=== PATIENT | female | born 1980 | race African-American/Black ===

== ENCOUNTER 2016-10-30 06:58 | Emergency (ER) | payer OTHER ==
[~2016-10-30] VITALS: Ht 167.6 cm; Wt 95.3 kg
[~2016-10-30 06:58] MED LIST: HYDR-971 PO; IBUP-1007 PO; SULF1TAB24 PO; TRAM-48 PO
[2016-10-30 07:10] VITALS: BP 146/80
[2016-10-30] MEDS ORDERED: CETIRIZINE HCL 10 MG TABLET. PO STA (07:27)
[2016-10-30] MEDS ORDERED: hydrOXYzine PAMOATE 25 MG CAPSULE PO STA (07:27)
[2016-10-30] MEDS ORDERED: predniSONE 20 MG TABLET PO ONE (07:30)
--- NOTE | 2016-10-30 07:32 | PHYS DOC ---
Past Medical History Past Medical History: No Pertinent History Past Surgical History: Other Additional Past Surgical Histo: fibroid removed l breast Alcohol Use: None Drug Use: None Adult General Chief Complaint Chief Complaint: INSECT BITE HPI HPI Patient is a 35 year old female with no significant medical history who presents with insect bites on her extremities that began 3 weeks ago. Patient denies any fever. Patient denies any knowledge of what could have caused the bites. Review of Systems Review of Systems Constitutional: Denies fever or chills [] Eyes: Denies change in visual acuity, redness, or eye pain [] HENT: Denies nasal congestion or sore throat [] Musculoskeletal: Denies back pain or joint pain [] Integument: insect bites on her extremities Neurologic: Denies headache, focal weakness or sensory changes [] Endocrine: Denies polyuria or polydipsia [] Current Medications Current Medications Current Medications Medications (Trade) Dose Ordered Sig/Chaparrita Start Time Stop Time Status Last Admin Dose Admin Cetirizine HCl (ZyrTEC) 10 mg 1X STAT 10/30/16 07:27 10/30/16 07:30 DC Hydroxyzine Pamoate (Vistaril) 50 mg 1X STAT 10/30/16 07:27 10/30/16 07:30 DC Prednisone (Prednisone) 60 mg 1X ONCE 10/30/16 07:30 10/30/16 07:31 DC Allergies Allergies Allergies Coded Allergies Type Severity Reaction Last Updated Verified Metronidazole HCl Allergy Intermediate RASH, SKIN PEELING 04/19/13 Yes Nitrofurantoin Allergy Intermediate RASH, SKIN PEELING 04/19/13 Yes Nitrofurantoin Macrocrystal Allergy Intermediate RASH, SKIN PEELING 04/19/13 Yes doxycycline Allergy Intermediate SKIN PEELING, RASH 04/19/13 Yes metronidazole Allergy Intermediate RASH, SKIN PEELING 04/19/13 Yes Physical Exam Physical Exam Constitutional: Well developed, well nourished, no acute distress, non-toxic appearance. [] HENT: Normocephalic, atraumatic, bilateral external ears normal, oropharynx moist, no oral exudates, nose normal. [] Eyes: PERRLA, EOMI, conjunctiva normal, no discharge. [] Skin: Bilateral upper and lower extremities with mild amount of erythematous macular rash consistent with insect bites. Back: No tenderness, no CVA tenderness. [] Extremities: No tenderness, no cyanosis, no clubbing, ROM intact, no edema. [] Neurologic: Alert and oriented X 3, normal motor function, normal sensory function, no focal deficits noted. [] Psychologic: Affect normal, judgement normal, mood normal. [] Current Patient Data Vital Signs Vital Signs Date Time Temp Pulse Resp B/P (MAP) Pulse Ox O2 Delivery O2 Flow Rate FiO2 10/30/16 07:10 98.5 93 16 98 Room Air 98.5 EKG EKG [] Radiology/Procedures Radiology/Procedures [] Course & Med Decision Making Course & Med Decision Making Pertinent Labs and Imaging studies reviewed. (See chart for details) Patient is in the ED with insect bites from unknown source for three weeks. Discharged with Atarax, triamcinolone cream, prednisone, and instructed to follow-up with the director index in the next 2 weeks if symptoms don't improve. Recommended good hygiene at home. Dragon Disclaimer Dragon Disclaimer This electronic medical record was generated, in whole or in part, using a voice recognition dictation system. Departure Departure Impression: Primary Impression: Insect bite Disposition: HOME, SELF-CARE Condition: STABLE Referrals: NO PCP (PCP) GUSTABO DIXON MD follow up in the next one to two weeks Patient Instructions: Insect Bite, [id number] Additional Instructions: You were seen with insect bites.Use the prescribed medicines as ordered. Follow- up with the provided director index in the next 1-2 weeks if symptoms continue. Scripts Cetirizine Hcl (ZYRTEC) 10 Mg Tablet 1 TAB PO DAILY, #30 TAB 2 Refills Prov: DORON JOHNSON APRN 10/30/16 Hydroxyzine Pamoate (HYDROXYZINE PAMOATE) 50 Mg Capsule 1 CAP PO TID Y for ITCHING, #90 CAP 1 Refill Prov: MUTUNGADORON MEN'S SWIM COACH 10/30/16 Prednisone (PREDNISONE) 50 Mg Tablet 1 TAB PO DAILY, #4 TAB Prov: MUTUNGADORON MEN'S SWIM COACH 10/30/16 Triamcinolone Acetonide (TRIAMCINOLONE ACETONIDE 0.1% OINT) 15 Gm Oint...g. 1 JOE TP BID for WOUND CARE, #1 TUBE 1 Refill Prov: DORON JOHNSON APRN 10/30/16 Problem Qualifiers Primary Impression: Insect bite Encounter type: initial encounter Qualified Codes: W57.XXXA - Bitten or stung by nonvenomous insect and other nonvenomous arthropods, initial encounter DORON JOHNSON APRN Oct 30, 2016 07:32
[2016-10-30] MEDS ORDERED: HYDR50CA2 PO (07:39)
[2016-10-30] MEDS ORDERED: CETI10TA22 PO (07:39)
[2016-10-30] MEDS ORDERED: TRIA15OI TP (07:39)
[2016-10-30] MEDS ORDERED: PRED50TA PO (07:39)
== END 2016-10-30 07:52 | disposition home or self-care (01) ==
LOC: ER 06:58
DX: S40.862A Insect bite (nonvenomous) of left upper arm, initial encounter (principal); S40.861A Insect bite (nonvenomous) of right upper arm, initial encounter; S80.862A Insect bite (nonvenomous), left lower leg, initial encounter; S80.861A Insect bite (nonvenomous), right lower leg, initial encounter; W57.XXXA Bitten or stung by nonvenomous insect and other nonvenomous arthropods, initial encounter; Y93.89 Activity, other specified; Y92.89 Other specified places as the place of occurrence of the external cause; Y99.8 Other external cause status
CPT/HCPCS: 99284; J7512; Q0177

== ENCOUNTER 2017-02-08 11:58 | Emergency (ER) | payer BC, OTHER ==
[~2017-02-08] VITALS: Ht 170.2 cm; Wt 95.3 kg
[~2017-02-08 11:58] MED LIST changes: +CETI10TA22 PO; +HYDR50CA2 PO; +PRED50TA PO; +TRIA15OI TP
[2017-02-08 12:28] VITALS: BP 127/69
[2017-02-08] MEDS ORDERED: HYDROcodone/APAP 5/325MG 1 TAB TABLET PO ONE (12:30)
[2017-02-08] MEDS ORDERED: CYCLOBENZAPRINE 10 MG TABLET. PO ONE (12:30)
[2017-02-08] MEDS ORDERED: NAPROXEN 500 MG TABLET PO ONE (12:30)
--- NOTE | 2017-02-08 13:02 | RAD ---
Right lower extremity venous ultrasound, 02/08/2017 : History: Right leg pain Duplex evaluation including grayscale, color flow and spectral Doppler analysis was performed. The femoral and popliteal veins show no filling defects to suggest DVT. The visualized deep veins in the right calf are unremarkable. IMPRESSION: There is no sonographic evidence of deep vein thrombosis in the right lower extremity
[2017-02-08] MEDS ORDERED: TRAM-48 PO (13:56)
[2017-02-08] MEDS ORDERED: METH-37 PO (13:56)
--- NOTE | 2017-02-08 13:56 | PHYS DOC ---
Past Medical History Past Medical History: No Pertinent History Past Surgical History: Other Additional Past Surgical Histo: fibroid removed l breast Alcohol Use: None Drug Use: None Adult General Chief Complaint Chief Complaint: LOWEREXTREMITY INJURY HPI HPI Patient is a 36 year old female with no significant medical history who presents today complaining of right lower extremity spasms, mild to moderate pain and cramping that began 3 days ago. Patient denies any injury. Denies any back pain. Denies any chest pain or shortness of breath. She states most of the pain is on the calf and worse with ambulation. Patient denies any recent hospitalization denies any recent long car rides or air travel. Denies any use of control or any hormones. Denies any chest pain or shortness of breath. Review of Systems Review of Systems Constitutional: Denies fever or chills [] Eyes: Denies change in visual acuity, redness, or eye pain [] HENT: Denies nasal congestion or sore throat [] Respiratory: Denies cough or shortness of breath [] Cardiovascular: No additional information not addressed in HPI [] GI: Denies abdominal pain, nausea, vomiting, bloody stools or diarrhea [] : Denies dysuria or hematuria [] Musculoskeletal: right calf pain, spasm and cramping Integument: Denies rash or skin lesions [] Neurologic: Denies headache, focal weakness or sensory changes [] Current Medications Current Medications Current Medications Medications (Trade) Dose Ordered Sig/Chaparrita Start Time Stop Time Status Last Admin Dose Admin Acetaminophen/ Hydrocodone Bitart (Lortab 5/325) 1 tab 1X ONCE 02/08/17 12:30 02/08/17 12:32 DC 02/08/17 12:46 1 TAB Cyclobenzaprine HCl (Flexeril) 10 mg 1X ONCE 02/08/17 12:30 02/08/17 12:32 DC 02/08/17 12:46 10 MG Naproxen (Naprosyn) 500 mg 1X ONCE 02/08/17 12:30 02/08/17 12:32 DC 02/08/17 12:47 500 MG Allergies Allergies Allergies Coded Allergies Type Severity Reaction Last Updated Verified Metronidazole HCl Allergy Intermediate RASH, SKIN PEELING 04/19/13 Yes Nitrofurantoin Macrocrystal Allergy Intermediate RASH, SKIN PEELING 04/19/13 Yes doxycycline Allergy Intermediate SKIN PEELING, RASH 04/19/13 Yes metronidazole Allergy Intermediate RASH, SKIN PEELING 04/19/13 Yes nitrofurantoin Allergy Intermediate RASH, SKIN PEELING 04/19/13 Yes Physical Exam Physical Exam Constitutional: Well developed, well nourished, no acute distress, non-toxic appearance. [] HENT: Normocephalic, atraumatic, bilateral external ears normal, oropharynx moist, no oral exudates, nose normal. [] Eyes: PERRLA, EOMI, conjunctiva normal, no discharge. [] Neck: Normal range of motion, no tenderness, supple, no stridor. [] Cardiovascular:Heart rate regular rhythm, no murmur [] Lungs & Thorax: Bilateral breath sounds clear to auscultation [] Abdomen: Bowel sounds normal, soft, no tenderness, no masses, no pulsatile masses. [] Skin: Warm, dry, no erythema, no rash. [] Back: No tenderness, no CVA tenderness. [] Extremities: Right calf with no obvious swelling or erythema. Both calfs are same size. Negative Homans sign bilaterally. +2 bilateral pedal pulses. Cap refill less than 2 seconds the right lower extremity. Neurologic: Alert and oriented X 3, normal motor function, normal sensory function, no focal deficits noted. [] Psychologic: Affect normal, judgement normal, mood normal. [] Current Patient Data Vital Signs Vital Signs Date Time Temp Pulse Resp B/P (MAP) Pulse Ox O2 Delivery O2 Flow Rate FiO2 02/08/17 12:28 98.6 106 16 98 Room Air 98.6 Lab Values Laboratory Tests Test 02/08/17 13:30 POC Hemoglobin 14.6 g/dL (12-15) POC Hematocrit 43 % (36-40) H POC Sodium 139 mmol/L (135-145) POC Potassium 4.0 mmol/L (3.5-5.0) POC Chloride 102 mmol/L (98-110) POC Total CO2 24 mmol/L (23-32) Anion Gap 17 mmol/L (6-14) H POC Blood Urea Nitrogen 16 mg/dL (8-26) POC Creatinine 1.0 mg/dL (0.5-1.4) Glucose Level 84 mg/dL (70-99) POC Ionized Calcium (Leonard) 1.12 mmol/L (1.13-1.32) L Laboratory Tests 02/08/17 13:30 EKG EKG [] Radiology/Procedures Radiology/Procedures [] Course & Med Decision Making Course & Med Decision Making Pertinent Labs and Imaging studies reviewed. (See chart for details) Patient is in the ED with complaints of right lower extremity pain, cramping and spasms that began 3 days ago. No known injury. Venous Doppler of the right lower extremity was negative for any acute findings, chem 8 with no acute findings. Patient was discharged with muscles relaxer and pain medicine. Recommended elevating the affected extremity. Recommended following up with the PCP in the course of this week. Coumadin coming back to the ED if symptoms worsen. Dragon Disclaimer Dragon Disclaimer This electronic medical record was generated, in whole or in part, using a voice recognition dictation system. Departure Departure Impression: Primary Impression: Acute pain of right lower extremity Disposition: 01 HOME, SELF-CARE Condition: STABLE Referrals: NO PCP (PCP) follow up with your doctor in one week if pain continues Patient Instructions: Musculoskeletal Pain Additional Instructions: You were seen for right lower extremity pain, cramping and spasms. Ice and elevate the extremity as tolerated. Take the prescribed medicines as needed for pain. Do not drive or operate machinery on the medications. Follow-up with your own doctor in one week. Scripts Methocarbamol (ROBAXIN) 500 Mg Tablet 1 TAB PO TID, #30 TAB Prov: DORON JOHNSON APRN 02/08/17 Tramadol Hcl (ULTRAM) 50 Mg Tablet 1 TAB PO Q6HRS, #30 TAB Prov: DORON JOHNSON APRN 02/08/17 DORON JOHNSON APRN Feb 08, 2017 13:56
== END 2017-02-08 14:02 | disposition home or self-care (01) ==
LOC: ER 11:58
DX: M79.661 Pain in right lower leg (principal); Z88.1 Allergy status to other antibiotic agents; Z88.8 Allergy status to other drugs, medicaments and biological substances
CPT/HCPCS: 80047; 93971; 99284

== ENCOUNTER 2017-06-27 07:21 | Emergency (ER) | payer OTHER, BC ==
[2017-06-27] MEDS: DIPHTH,PERTUSS(ACELL),TET TOX 0.5 ML DISP.SYRIN. VAX IM ×2 (07:57)
== END 2017-06-27 08:03 | disposition home or self-care (01) ==
LOC: ER 07:21
DX: L02.416 Cutaneous abscess of left lower limb (principal); Z88.1 Allergy status to other antibiotic agents; Z88.8 Allergy status to other drugs, medicaments and biological substances
CPT/HCPCS: 90471; 90715; 99283-25

== ENCOUNTER 2017-09-27 18:50 | Observation (INO) | payer OTHER ==
[2017-09-27] MEDS: ONDANSETRON PF 4 MG/2 ML VIAL. IV (19:09)
[2017-09-27] MEDS: fentaNYL PF VIAL 100 MCG/2 ML VIAL IV ×3 (19:09→22:26)
[2017-09-27] MEDS: IV NORMAL SALINE 1000ML BAG 1,000 ML IV ×2 (19:10→20:14)
[2017-09-27 19:17] LABS: BASO # 0.1 x10^3/uL (0.0-0.2); BASO % 1 % (0-3); EOS # 0.3 x10^3/uL (0.0-0.7); EOS % 2 % (0-3); HEMATOCRIT 35.5 % (36.0-47.0); HEMOGLOBIN 12.3 g/dL (12.0-15.5); LYMPH % 22 % (24-48); MEAN CORPUSCULAR HEMOGLOBIN 30 pg (25-35); MEAN CORPUSCULAR HGB CONC 35 g/dL (31-37); MEAN CORPUSCULAR VOLUME 88 fL (79-100); MONO # 0.9 x10^3/uL (0.0-1.1); MONO % 5 % (0-9); NEUT # 12.9 x10^3uL (1.8-7.7); NEUT % 71 % (31-73); PLATELET COUNT 298 x10^3/uL (140-400); RED BLOOD COUNT 4.04 x10^6/uL (3.50-5.40); RED CELL DISTRIBUTION WIDTH 14.1 % (11.5-14.5); WHITE BLOOD COUNT 18.2 x10^3/uL (4.0-11.0)
[2017-09-27] MEDS ORDERED: fentaNYL PF VIAL 100 MCG/2 ML VIAL IV (19:20)
[2017-09-27 19:28] LABS: ADD MAN DIFF? YES
[2017-09-27 19:33] LABS: NEG OBC SER NEG; POS OBC SER POS; PREG TEST PT QUAL POSITIVE (NEG)
[2017-09-27] MEDS: MORPHINE SULFATE 4 MG/ML DISP.SYRIN. IV ×3 (19:36→20:24)
[2017-09-27 19:55] LABS: % EOS 1 % (0-5); % LYMPHS 20 % (24-48); % MONOS 7 % (0-10); % SEGS 72 % (35-66); PLT ESTIMATE ADEQUATE (ADEQUATE)
[2017-09-27] MEDS ORDERED: ONDANSETRON PF 4 MG/2 ML VIAL. IV ×2 (20:15→21:00)
[2017-09-27] MEDS ORDERED: ACETAMINOPHEN 325 MG TABLET. PO (20:15)
[2017-09-27] MEDS ORDERED: MORPHINE SULFATE 4 MG/ML DISP.SYRIN. IV ×2 (20:15→21:00)
[2017-09-27] MEDS ORDERED: fentaNYL PF VIAL 100 MCG/2 ML VIAL (20:39)
[2017-09-27] MEDS ORDERED: SEVOFLURANE 16 TO 30 MINUTES. IH (20:39)
[2017-09-27] MEDS ORDERED: PROPOFOL 20 ML IV (20:40)
[2017-09-27] MEDS ORDERED: DEXAMETHASONE SOD PHOS 20 MG/5 ML VIAL. (20:40)
[2017-09-27] MEDS ORDERED: ONDANSETRON PF 4 MG/2 ML VIAL. (20:40)
[2017-09-27] MEDS ORDERED: FAMOTIDINE 20 MG/2 ML VIAL (20:44)
[2017-09-27] MEDS ORDERED: METOCLOPRAMIDE HCL 10 MG/2 ML VIAL. IV (21:00)
[2017-09-27] MEDS ORDERED: diphenhydrAMINE HCL 25 MG CAPSULE PO (21:00)
[2017-09-27] MEDS ORDERED: MAG HYDROX/ALUMINUM HYD/SIMETH 30 ML ORAL.SUSP PO (21:00)
[2017-09-27] MEDS ORDERED: DEXTROSE 50% 25 GM / 50ML DISP.SYRIN. IV (21:00)
[2017-09-27] MEDS ORDERED: DOXYCYCLINE HYCLATE 100 MG TABLET PO (21:00)
[2017-09-27] MEDS ORDERED: PHENYLEPHRINE in 0.9% NACL PF 1 MG/10 ML SYRINGE. IV (21:00)
[2017-09-27] MEDS ORDERED: oxyCODONE/APAP 5/325 1 TAB TABLET PO (21:00)
[2017-09-27] MEDS ORDERED: 0.9 % SODIUM CHLORIDE 10 ML DISP.SYRIN. IV (21:00)
[2017-09-27] MEDS ORDERED: OXYTOCIN 10 UNIT/ML VIAL. (21:03)
[2017-09-27] MEDS: IV RINGERS,LACTATED 1000ML 1,000 ML IV (22:25)
[2017-09-27] MEDS: METHYLERGONOVINE MALEATE 0.2 MG TABLET PO (22:55)
[2017-09-27] MEDS: oxyCODONE/APAP 5/325 1 TAB TABLET PO (23:38)
[2017-09-28] MEDS: oxyCODONE IR 5 MG TABLET PO (02:24)
[2017-09-28] MEDS: oxyCODONE/APAP 5/325 1 TAB TABLET PO (05:51)
[2017-09-28] MEDS ORDERED: CLINDAMYCIN HCL 150 MG CAPSULE. PO (09:00)
[2017-09-28] MEDS ORDERED: LACTOBACILLUS RHAMNOSUS GG 1 CAPSULE. PO (09:00)
[2017-09-28 09:19] LABS: ADD MAN DIFF? NO
[2017-09-28 09:24] LABS: BASO # 0.1 x10^3/uL (0.0-0.2); BASO % 0 % (0-3); EOS % 0 % (0-3); HEMATOCRIT 21.7 % (36.0-47.0); HEMOGLOBIN 7.1 g/dL (12.0-15.5); LYMPH # 1.5 x10^3/uL (1.0-4.8); LYMPH % 7 % (24-48); MEAN CORPUSCULAR HEMOGLOBIN 29 pg (25-35); MEAN CORPUSCULAR HGB CONC 33 g/dL (31-37); MEAN CORPUSCULAR VOLUME 89 fL (79-100); MONO # 0.5 x10^3/uL (0.0-1.1); MONO % 3 % (0-9); NEUT # 19.6 x10^3uL (1.8-7.7); NEUT % 90 % (31-73); PLATELET COUNT 235 x10^3/uL (140-400); RED BLOOD COUNT 2.43 x10^6/uL (3.50-5.40); WHITE BLOOD COUNT 21.6 x10^3/uL (4.0-11.0)
[2017-09-28 09:36] LABS: ANION GAP 9 (6-14); BLOOD UREA NITROGEN 11 mg/dL (7-20); CALCIUM 8.3 mg/dL (8.5-10.1); CARBON DIOXIDE 24 mmol/L (21-32); CHLORIDE 106 mmol/L (98-107); CREATININE 0.9 mg/dL (0.6-1.0); GFR 86.7; GLUCOSE 133 mg/dL (70-99); POTASSIUM 4.3 mmol/L (3.5-5.1); SODIUM 139 mmol/L (136-145)
== END 2017-09-28 14:30 | disposition home or self-care (01) ==
LOC: ER 18:50 → 3 NORTH 20:10
PROVIDERS: Specialist
DX: O03.4 Incomplete spontaneous abortion without complication (principal); Z3A.10 10 weeks gestation of pregnancy
CPT/HCPCS: 36415; 76856; 80048; 84702; 84703; 85007; 85025; 86850; 86900; 86901; 88305; 96361; 96374; 96375; 96376; 99285-25; C1769; G0378; G0379; J1100; J2270; J2370; J2405; J2590; J2704; J3010; J7030; J7120; S0028

== ENCOUNTER 2018-10-28 10:16 | Emergency (ER) | payer OTHER ==
[~2018-10-28] VITALS: Ht 170.2 cm; Wt 68.0 kg
[~2018-10-28 10:16] MED LIST changes: +FERR325T14 PO; +HYDR-3164 PO; -HYDR-971 PO; +METH-37 PO; +OXYC1TAB7 PO
[2018-10-28 10:53] VITALS: BP 132/65
[2018-10-28] MEDS ORDERED: NAPR-683 PO (11:01)
--- NOTE | 2018-10-28 11:02 | PHYS DOC ---
Past Medical History Past Medical History: Asthma Past Surgical History: Other Additional Past Surgical Histo: lump removed from left breast Alcohol Use: None Drug Use: None Adult General Chief Complaint Chief Complaint: KNEE INJURY [facility] HPI Patient is a 37 year old female who presents with complaining of right knee pain. Patient complaining of nontraumatic right knee pain for the last 5 days after handling some grocery bags. Patient complaining of constant pain in her neck that getting worse with walking and bearing weight. Patient denies focal neuro deficit, fever and chills, . Patient states she is therefore return to work today. Review of Systems Review of Systems Constitutional: Denies fever or chills [] Eyes: Denies change in visual acuity, redness, or eye pain [] HENT: Denies nasal congestion or sore throat [] Respiratory: Denies cough or shortness of breath [] Cardiovascular: No additional information not addressed in HPI [] GI: Denies abdominal pain, nausea, vomiting, bloody stools or diarrhea [] : Denies dysuria or hematuria [] Musculoskeletal: Denies back pain, reports joint pain [] Integument: Denies rash or skin lesions [] Neurologic: Denies headache, focal weakness or sensory changes [] Endocrine: Denies polyuria or polydipsia [] All other systems were reviewed and found to be within normal limits, except as documented in this note. Allergies Allergies Allergies Coded Allergies Type Severity Reaction Last Updated Verified Metronidazole HCl Allergy Intermediate RASH, SKIN PEELING 04/19/13 Yes Nitrofurantoin Macrocrystal Allergy Intermediate RASH, SKIN PEELING 04/19/13 Yes doxycycline Allergy Intermediate SKIN PEELING, RASH 04/19/13 Yes metronidazole Allergy Intermediate RASH, SKIN PEELING 04/19/13 Yes nitrofurantoin Allergy Intermediate RASH, SKIN PEELING 04/19/13 Yes Physical Exam Physical Exam Constitutional: Well developed, well nourished, no acute distress, non-toxic appearance. [] HENT: Normocephalic, atraumatic Eyes: PERRLA, EOMI, conjunctiva normal, no discharge. [] Neck: Normal range of motion, no tenderness, supple, no stridor. [] Cardiovascular:Heart rate regular rhythm, no murmur [] Lungs & Thorax: Bilateral breath sounds clear to auscultation [] Extremities: Right knee without deformity or edema or crepitation, no tenderness, no cyanosis, no clubbing, ROM intact, no edema. [] Neurologic: Alert and oriented X 3, normal motor function, normal sensory function, no focal deficits noted. [] Psychologic: Affect normal, judgement normal, mood normal. [] EKG EKG [] Radiology/Procedures Radiology/Procedures [] Course & Med Decision Making Course & Med Decision Making discharge: I've spoken with the patient and/or caregivers. I've explained the patient's condition, diagnosis and treatment plan based on information available to me at this time. I've answered the patient's and/or caregivers questions and addressed any concerns. The patient and/or caregivers have a good understanding the yevgeniy calle's diagnosis, condition and treatment plan as can be expected at this point. Vital signs have been stabilized. The patient's condition is stable for discharge from the emergency department. The patient will pursue further outpatient evaluation with her primary care provider or other designated consulting physician as outlined in the discharge instructions. Patient and/or caregivers are agreeable to this plan of care and follow-up instructions have been explained in detail. The patient and/or caregivers have received these instructions in written format and expressed understanding of these discharge instructions. The patient and her caregivers are aware that if any significant change in condition or worsening of symptoms should prompt him to immediately return to this of the closest emergency department. If an emergent department is not readily available I would encourage him to call 911. Mg Disclaimer Dragon Disclaimer This electronic medical record was generated, in whole or in part, using a voice recognition dictation system. Departure Departure Impression: Primary Impression: Right knee pain Disposition: HOME, SELF-CARE (at 11 00) Condition: STABLE Referrals: NO PCP (PCP) Patient Instructions: Arthritis, Degenerative-Brief Additional Instructions: Apply ice on right Follow-up with your primary care physician in 3-5 days Return to ER if not getting better Scripts Naproxen (NAPROSYN) 500 Mg Tablet 1 TAB PO BID for pain, #20 TAB Prov: NASREEN VILLA MD 10/28/18 Problem Qualifiers Primary Impression: Right knee pain Chronicity: unspecified Qualified Codes: M25.561 - Pain in right knee NASREEN VILLA MD Oct 28, 2018 11:02
== END 2018-10-28 11:11 | disposition home or self-care (01) ==
LOC: ER 10:16
DX: M25.561 Pain in right knee (principal); M54.2 Cervicalgia; J45.909 Unspecified asthma, uncomplicated; Z88.1 Allergy status to other antibiotic agents; Z88.8 Allergy status to other drugs, medicaments and biological substances
CPT/HCPCS: 99283

== ENCOUNTER 2018-12-31 10:41 | Emergency (ER) | payer OTHER ==
[~2018-12-31] VITALS: Ht 167.6 cm; Wt 93.0 kg
[~2018-12-31 10:41] MED LIST changes: +NAPR-683 PO
[2018-12-31 11:50] VITALS: BP 134/71
[2018-12-31] MEDS ORDERED: CEPH-264 PO (11:59)
--- NOTE | 2018-12-31 11:59 | PHYS DOC ---
Past Medical History Past Medical History: No Pertinent History, Asthma Past Surgical History: Other Additional Past Surgical Histo: lump removed from left breast Alcohol Use: None Drug Use: None Adult General Chief Complaint Chief Complaint: INSECT BITE HPI HPI Patient is a 38 year old female presents to the ER with an insect bite to the right side. The areas been hurting her since last night, denies fevers. Rates mild pain is 3 out of 10 in severity. Has not taken any medicine prior to arrival. Review of Systems Review of Systems Constitutional: Denies fever or chills [] Eyes: Denies change in visual acuity, redness, or eye pain [] HENT: Denies nasal congestion or sore throat [] Respiratory: Denies cough or shortness of breath [] Cardiovascular: No additional information not addressed in HPI [] GI: Denies abdominal pain, nausea, vomiting, bloody stools or diarrhea [] : Denies dysuria or hematuria [] Musculoskeletal: Denies back pain or joint pain [] Integument: Reports insect bite to R side Neurologic: Denies headache, focal weakness or sensory changes [] Endocrine: Denies polyuria or polydipsia [] Complete systems were reviewed and found to be within normal limits, except as documented in this note. Allergies Allergies Allergies Coded Allergies Type Severity Reaction Last Updated Verified Metronidazole HCl Allergy Intermediate RASH, SKIN PEELING 04/19/13 Yes Nitrofurantoin Macrocrystal Allergy Intermediate RASH, SKIN PEELING 04/19/13 Yes doxycycline Allergy Intermediate SKIN PEELING, RASH 04/19/13 Yes metronidazole Allergy Intermediate RASH, SKIN PEELING 04/19/13 Yes nitrofurantoin Allergy Intermediate RASH, SKIN PEELING 04/19/13 Yes Physical Exam Physical Exam Constitutional: Well developed, well nourished, no acute distress, non-toxic appearance. [] HENT: Normocephalic, atraumatic, bilateral external ears normal, oropharynx moist, no oral exudates, nose normal. [] Eyes: PERRLA, EOMI, conjunctiva normal, no discharge. [] Neck: Normal range of motion, no tenderness, supple, no stridor. [] Cardiovascular:Heart rate regular rhythm, no murmur [] Lungs & Thorax: Bilateral breath sounds clear to auscultation [] Abdomen: Bowel sounds normal, soft, no tenderness, no masses, no pulsatile masses. [] Skin: Area of erythema with brown sac in middle. ] Back: No tenderness, no CVA tenderness. [] Extremities: No tenderness, no cyanosis, no clubbing, ROM intact, no edema. [] Neurologic: Alert and oriented X 3, normal motor function, normal sensory function, no focal deficits noted. [] Psychologic: Affect normal, judgement normal, mood normal. [] EKG EKG [] Radiology/Procedures Radiology/Procedures [] Course & Med Decision Making Course & Med Decision Making Pertinent Labs and Imaging studies reviewed. (See chart for details) Does not appear to be a candidate for draining. Will treat with Keflex. Dragon Disclaimer Dragon Disclaimer This electronic medical record was generated, in whole or in part, using a voice recognition dictation system. Departure Departure Impression: Primary Impression: Cellulitis Disposition: HOME, SELF-CARE Condition: STABLE Referrals: NO PCP (PCP) Patient Instructions: Cellulitis Additional Instructions: Thank you for visiting [facility]. We appreciate you trusting us with your care. If any additional problems come up don't hesitate to return to visit us. Please follow up with your primary care provider so they can plan additional care if needed and know about the problem that you had. If symptoms worsen come back to the Emergency Department. Any concerning symptoms that start such as chest pain, shortness of air, weakness or numbness on one side of the body, running high fevers or any other concerning symptoms return to the ER. You have been prescribed an antibiotic today to help fight your infection. Please take all of the antibiotic as directed. If after 48 hours the infection is not improving, please return for more care. If the infection worsens, return to ER for additional care. Scripts Cephalexin (KEFLEX) 500 Mg Capsule 500 MG PO QID for 5 Days, #20 CAP Prov: CARMELITA VELAZQUEZ APRN 12/31/18 Problem Qualifiers Primary Impression: Cellulitis Site of cellulitis: trunk Site of cellulitis of trunk: back Qualified Codes: L03.312 - Cellulitis of back [any part except buttock] CARMELITA VELAZQUEZ APRN Dec 31, 2018 11:59
== END 2018-12-31 12:02 | disposition home or self-care (01) ==
LOC: ER 10:41
DX: L03.312 Cellulitis of back [any part except buttock and flank] (principal); J45.909 Unspecified asthma, uncomplicated; Z88.1 Allergy status to other antibiotic agents; Z88.8 Allergy status to other drugs, medicaments and biological substances; W57.XXXA Bitten or stung by nonvenomous insect and other nonvenomous arthropods, initial encounter; Y93.89 Activity, other specified; Y92.89 Other specified places as the place of occurrence of the external cause; Y99.8 Other external cause status
CPT/HCPCS: 99283

== ENCOUNTER 2021-01-11 12:10 | Inpatient (IN) | payer OTHER ==
[~2021-01-11] VITALS: Ht 175.3 cm; Wt 84.5 kg
[2021-01-11] VITALS (8 sets, daily range): BP systolic 105–148; BP diastolic 68–85
[~2021-01-11 12:10] MED LIST changes: +CEPH-264 PO; -CETI10TA22 PO; +CETI10TA74 PO
[2021-01-11] MEDS ORDERED: NALOXONE IV ONE (12:45)
[2021-01-11] MEDS ORDERED: NOREPINEPHRINE VIAL 8 MG in IV DEXTROSE 5% 250 ML IV ONE (12:45)
[2021-01-11] MEDS ORDERED: NS IV ONE (12:45)
[2021-01-11 13:22] LABS: U PREG PATIENT NEGATIVE (NEG)
--- NOTE | 2021-01-11 13:33 | RAD ---
EXAMINATION: XR CHEST 2V CLINICAL HISTORY: POST INTUBATION AND OG TUBE PLACEMENT EXAM DATE/TIME: 01/11/2021 1:03 PM COMPARISON: None FINDINGS: Lines, Tubes, and Devices: Endotracheal tube terminating 3.3 cm above the rohith. Enteric tube in pro ximal side port within the stomach. Cardiomediastinal Silhouette: Normal heart size. Lungs and Pleura: Patchy opacities predominantly in the central right lung and to lesser extent left upper lung zone. No evidence of pleural effusion or pneumothorax. Bones and Soft Tissues: No acute osseous abnormality. IMPRESSION: Patchy airspace disease/edema in the central right lung and mild patchy airspace disease in the left upper lung zone. Endotracheal and enteric tubes in satisfactory positions. Electronically signed by: Robby Suggs DO (01/11/2021 1:31 PM) JOSE
[2021-01-11 13:39] LABS: BASO % 0 % (0-3); EOS % 0 % (0-3); HEMATOCRIT 43.6 % (36.0-47.0); HEMOGLOBIN 13.7 g/dL (12.0-15.5); LYMPH % 7 % (24-48); MEAN CORPUSCULAR HEMOGLOBIN 29 pg (25-35); MEAN CORPUSCULAR HGB CONC 31 g/dL (31-37); MEAN CORPUSCULAR VOLUME 92 fL (79-100); MONO # 1.5 x10^3/uL (0.0-1.1); MONO % 10 % (0-9); NEUT # 12.9 x10^3/uL (1.8-7.7); NEUT % 84 % (31-73); PLATELET COUNT 344 x10^3/uL (140-400); RED BLOOD COUNT 4.74 x10^6/uL (3.50-5.40); WHITE BLOOD COUNT 15.5 x10^3/uL (4.0-11.0)
[2021-01-11] MEDS ORDERED: ROCURONIUM 50 MG/5 ML VIAL. ONE (13:41)
[2021-01-11] MEDS ORDERED: KETAMINE HCL 500 MG/10 ML VIAL. ONE (13:41)
[2021-01-11 13:49] LABS: ALBUMIN 3.2 g/dL (3.4-5.0); ALBUMIN/GLOBULIN RATIO 0.8 (1.0-1.7); CREATININE 2.2 mg/dL (0.6-1.0); GFR 30.2; TOTAL BILIRUBIN 0.2 mg/dL (0.2-1.0); TOTAL PROTEIN 7.4 g/dL (6.4-8.2)
[2021-01-11] MEDS: PROPOFOL 100 ML IV PRN (13:51)
[2021-01-11] MEDS ORDERED: DEXTROSE 50% 25 GM / 50ML DISP.SYRIN. IV ONE (14:00)
--- NOTE | 2021-01-11 14:01 | PHYS DOC ---
Past Medical History Past Medical History: Asthma Past Surgical History: Other Additional Past Surgical Histo: lump removed from left breast Smoking Status: Current Every Day Smoker Alcohol Use: None Drug Use: None General Adult EDM: Chief Complaint: CPR/FULL ARREST HPI: HPI: History gathered with the help of the patient's mother, sister, and brother. Patient is a 40 year old female with history of anemia and opiate abuse who presents with altered mental status with EMS. Patient did not report to work today, so her mother went to check on her and found her unresponsive on the floor. She called EMS who stated the patient was hypotensive 50s systolic, satting in the 70s on room air, and had agonal respirations. Pupils were pinpoint there and she received 4 mg intranasal Narcan, followed by 2 mg IV Narcan with improvement in her respiratory status. She was bagged/BVM on the way in. Per police report, there was a white powdery substance found. Patient's family confirms that the patient has a substance abuse problem and has frequently abused opiates in the past. Review of Systems: Review of Systems: Unable to complete ROS due to altered mental status. Heart Score: C/O Chest Pain: N/A Risk Factors: Risk Factors: DM, Current or recent (<one month) smoker, HTN, HLP, family history of CAD, obesity. Risk Scores: Score 0 - 3: 2.5% MACE over next 6 weeks - Discharge Home Score 4 - 6: 20.3% MACE over next 6 weeks - Admit for Clinical Observation Score 7 - 10: 72.7% MACE over next 6 weeks - Early Invasive Strategies Current Medications: Current Medications Medications (Trade) Dose Ordered Sig/Chaparrita Start Time Stop Time Status Last Admin Dose Admin Chlorhexidine Gluconate (Peridex) 15 ml BID 01/11/21 21:00 Dextrose (Dextrose 50%-Water Syringe) 25 gm 1X ONCE 01/11/21 14:00 01/11/21 14:01 UNV Ketamine HCl (Ketamine) 500 mg STK-MED ONCE 01/11/21 13:41 01/11/21 13:41 DC Lorazepam (Ativan Inj) 2 mg PRN Q1HR PRN 01/11/21 13:30 Naloxone HCl 4 mg/ Sodium Chloride 254 ml @ 0 mls/hr 1X ONCE 01/11/21 12:45 01/11/21 12:46 DC 01/11/21 13:24 15.6 MLS/HR Norepinephrine Bitartrate 8 mg/ Dextrose 258 ml @ 0 mls/hr 1X ONCE 01/11/21 12:45 01/11/21 12:46 DC 01/11/21 13:26 16.7 MLS/HR Propofol 100 ml @ 0 mls/hr CONT PRN 01/11/21 13:30 01/11/21 13:51 10.7 MLS/HR Rocuronium [place] (Zemuron) 50 mg STK-MED ONCE 01/11/21 13:41 01/11/21 13:41 DC Allergies: Allergies: Allergies Coded Allergies Type Severity Reaction Last Updated Verified Metronidazole HCl Allergy Intermediate RASH, SKIN PEELING 04/19/13 Yes Nitrofurantoin Macrocrystal Allergy Intermediate RASH, SKIN PEELING 04/19/13 Yes doxycycline Allergy Intermediate SKIN PEELING, RASH 04/19/13 Yes metronidazole Allergy Intermediate RASH, SKIN PEELING 04/19/13 Yes nitrofurantoin Allergy Intermediate RASH, SKIN PEELING 04/19/13 Yes Physical Exam: PE: Constitutional: Unresponsive, frothing at the mouth, receiving BVM ventilation HEENT: Lateral tongue biting evident, jaw clenched Eyes: Pupils pinpoint, responsive to Narcan to 2-3 mm Cardiovascular: tachycardic, regular rhythm [] Lungs & Thorax: Rhonchorous breath sounds with BVM, present bilaterally. [] Abdomen: Soft, nondistended [] Skin: Cool to the touch. Some redness/bruising to the chest/breast. [] Extremities: Cool extremities with pulses present. [] Neurologic: Unresponsive, eyes closed, no verbal response, extensor posturing. [] Current Patient Data: Labs: Laboratory Tests Test 01/11/21 13:04 01/11/21 13:25 Urine Test Negative (NEG) White Blood Count 15.5 x10^3/uL (4.0-11.0) H Red Blood Count 4.74 x10^6/uL (3.50-5.40) Hemoglobin 13.7 g/dL (12.0-15.5) Hematocrit 43.6 % (36.0-47.0) Mean Corpuscular Volume 92 fL (79-100) Mean Corpuscular Hemoglobin 29 pg (25-35) Mean Corpuscular Hemoglobin Concent 31 g/dL (31-37) Red Cell Distribution Width 14.0 % (11.5-14.5) Platelet Count 344 x10^3/uL (140-400) Neutrophils (%) (Auto) 84 % (31-73) H Lymphocytes (%) (Auto) 7 % (24-48) L Monocytes (%) (Auto) 10 % (0-9) H Eosinophils (%) (Auto) 0 % (0-3) Basophils (%) (Auto) 0 % (0-3) Neutrophils # (Auto) 12.9 x10^3/uL (1.8-7.7) H Lymphocytes # (Auto) 1.0 x10^3/uL (1.0-4.8) Monocytes # (Auto) 1.5 x10^3/uL (0.0-1.1) H Eosinophils # (Auto) 0.0 x10^3/uL (0.0-0.7) Basophils # (Auto) 0.0 x10^3/uL (0.0-0.2) Platelet Estimate Pending Sodium Level 142 mmol/L (136-145) Potassium Level 4.0 mmol/L (3.5-5.1) Chloride Level 107 mmol/L (98-107) Carbon Dioxide Level 23 mmol/L (21-32) Anion Gap 12 (6-14) Blood Urea Nitrogen 23 mg/dL (7-20) H Creatinine 2.2 mg/dL (0.6-1.0) H Estimated GFR (Cockcroft-Gault) 30.2 BUN/Creatinine Ratio 10 (6-20) Glucose Level 21 mg/dL (70-99) *L Calcium Level 8.0 mg/dL (8.5-10.1) L Total Bilirubin 0.2 mg/dL (0.2-1.0) Aspartate Amino Transferase (AST) 38 U/L (15-37) H Alanine Aminotransferase (ALT) 23 U/L (14-59) Alkaline Phosphatase 60 U/L (46-116) Total Protein 7.4 g/dL (6.4-8.2) Albumin 3.2 g/dL (3.4-5.0) L Albumin/Globulin Ratio 0.8 (1.0-1.7) L Laboratory Tests 01/11/21 13:25 Laboratory Tests 01/11/21 13:25 Vital Signs: Vital Signs Date Time Temp Pulse Resp B/P (MAP) Pulse Ox O2 Delivery O2 Flow Rate FiO2 01/11/21 13:00 100 BiPAP/CPAP 01/11/21 12:34 119 30 70/55 (60) 15.0 EKG: EKG: Sinus tachycardia. Rate 109. [] Radiology/Procedures: Radiology/Procedures: [] Impression: [place] [id number] IMAGING REPORT Signed PATIENT: YEIMY SCOTT NACCOUNT: [id number] : 1980 LOCATION: ER AGE: 40 SEX: F EXAM STATUS: REG ER ORD. PHYSICIAN: JED BARAHONA MD REASON: POST INTUBATION, AND OG TUBE PLACEMENT PROCEDURE: CHEST AP ONLY EXAMINATION: XR CHEST 2V CLINICAL HISTORY: POST INTUBATION AND OG TUBE PLACEMENT EXAM DATE/TIME: 01/11/2021 1:03 PM COMPARISON: None FINDINGS: Lines, Tubes, and Devices: Endotracheal tube terminating 3.3 cm above the car airam. Enteric tube in proximal side port within the stomach. Cardiomediastinal Silhouette: Normal heart size. Lungs and Pleura: Patchy opacities predominantly in the central right lung and to lesser extent left upper lung zone. No evidence of pleural effusion or pneumothorax. Bones and Soft Tissues: No acute osseous abnormality. IMPRESSION: Patchy airspace disease/edema in the central right lung and mild patchy airspace disease in the left upper lung zone. Endotracheal and enteric tubes in satisfactory positions. Electronically signed by: Robby Domínguez DO (01/11/2021 1:31 PM) [facility] DICTATED and SIGNED BY: ROBBY DOMÍNGUEZ DO DATE: 01/11/21 [id number] [address] [id number] IMAGING REPORT Signed PATIENT: YEIMY SCOTT NACCOUNT: [id number] : 1980 LOCATION: ER AGE: 40 SEX: F EXAM STATUS: REG ER ORD. PHYSICIAN: JED BARAHONA MD REASON: AMS, RESPIRATORY ARREST PROCEDURE: CT HEAD WO CONTRAST PQRS Compliance Statement: One or more of the following individualized dose reduction techniques were utilized for this examination: 1. Automated exposure control 2. Adjustment of the mA and/or kV according to patient size 3. Use of iterative reconstruction technique CT head without contrast 01/11/2021 12:59 PM INDICATION: Altered mental status, respiratory arrest COMPARISON: None available TECHNIQUE: Multiple axial CT images of the head were obtained from skull base through the vertex without intravenous contrast. FINDINGS: Head: Ventricles, sulci and basal cisterns are within normal limits. There is no h ydrocephalus. [place]-white matter differentiation is normal. There is no acute intracranial hemorrhage. There is no mass, mass effect or midline shift. Posterior fossa is normal in appearance. Visualized portions of the orbits are normal. Paranasal sinuses are well aerated. Mastoid air cells are well aerated. Scalp and calvaria are normal. 2 metallic clips identified along the left forehead. IMPRESSION: No acute intracranial hemorrhage. Electronically signed by: Francisco Javier Solis MD (01/11/2021 2:24 PM) [id number] DICTATED and SIGNED BY: FRANCISCO JAVIER SOLIS MD DATE: 01/11/21 [id number] Course & Med Decision Making: Course & Med Decision Making Pertinent Labs and Imaging studies reviewed. (See chart for details) Patient is a 40-year-old female with history of polysubstance abuse and anemia who was found unresponsive by family. Unknown downtime. On EMS arrival had miotic pupils, agonal respirations with sats in the 70s, and hypotension with SBP in the 50s. Sats came up with BVM. Pupils did respond to Narcan, however her mental status did not improve. She received numerous boluses of Narcan in the emergency department without mental status improvement. Her blood pressure was in the 60s on arrival, she received 2 L of IV normal saline pressure bag. Blood pressure improved to the 70s. It was clear that she required intubation due to her mental status, so a norepinephrine drip was started prior to intubation due to hypotension with good response. She was intubated with ketamine and rocuronium uneventfully. Post intubation chest x-ray confirmed tube placement, and did show evidence of right-sided aspiration. Given her critical illness, wbc elevation, lactic acid elevation and evidence of aspiration will treat with zosyn. Her vital signs have stabilized on norepinephrine and propofol drip was started. We will work on weaning norepinephrine as possible. Norepinephrine is running peripherally for now. Blood glucose returned 21. She received an amp of D50, did not have an improvement in her mental status. Her repeat blood glucose was 69. Hypoglycemia protocol implemented and every hour blood glucose was ordered. CT of the head did not show any acute intracranial process/bleed. Patient will be admitted to the ICU for further treatment. Indication: Respiratory failure Consent: Unable to give consent due to emergent nature. Medications Used: Ketamine and rocuronium. Preintubation norepinephrine was initiated due to hypotension. Procedure: The patient was placed in the appropriate position. Intubation was performed with glide scope S3 blade. 7.5 endotracheal tube. Secured with a tube morales at 22 cm at the teeth. Initial confirmation of placement included bilateral breath sounds, tube fogging, adequate chest rise, adequate pulse oximetry reading. A chest x-ray to verify correct placement of the tube showed appropriate tube position. The patient tolerated the procedure well. Complications: none. Dragon Disclaimer: Dragon Disclaimer: This electronic medical record was generated, in whole or in part, using a voice recognition dictation system. Departure Departure Impression: Primary Impression: Opiate overdose Additional Impressions: Altered mental status Respiratory failure with hypoxia Aspiration pneumonitis Hypoglycemia Disposition: ADMITTED INPATIENT Admitting Physician: CINDY EASLEY) Condition: CRITICAL Referrals: NO PCP (PCP) JED BARAHONA MD Jan 11, 2021 14:01
[2021-01-11 14:15] LABS: % BANDS 32 % (0-9); % LYMPHS 5 % (24-48); % MONOS 16 % (0-10); % SEGS 47 % (35-66); PLT ESTIMATE ADEQUATE (ADEQUATE)
[2021-01-11] MEDS ORDERED: DEXTROSE 50% 25 GM / 50ML DISP.SYRIN. IV PRN ×2 (14:15→15:45)
--- NOTE | 2021-01-11 14:26 | RAD ---
PQRS Compliance Statement: One or more of the following individualized dose reduction techniques were utilized for this examinat ion: 1. Automated exposure control 2. Adjustment of the mA and/or kV according to patient size 3. Use of iterative reconstruction technique CT head without contrast 01/11/2021 12:59 PM INDICATION: Altered mental status, respiratory arrest COMPARISON: None available TECHNIQUE: Multiple axial CT images of the head were obtained from skull base through the vertex with out intravenous contrast. FINDINGS: Head: Ventricles, sulci and basal cisterns are within normal limits. There is no hydrocephalus. [place]-white matter differentiation is normal. There is no acute intracranial hemorrhage. There is no mass, mass e ffect or midline shift. Posterior fossa is normal in appearance. Visualized portions of the orbits are normal. Paranasal sinuses are well aerated. Mastoid air cells a re well aerated. Scalp and calvaria are normal. 2 metallic clips identified along the left forehead. IMPRESSION: No acute intracranial hemorrhage. Electronically signed by: Ginette Cook MD (01/11/2021 2:24 PM) [id number]
--- NOTE | 2021-01-11 14:36 | PDOC1 ---
History and Physical Date of Service: DOS: DATE: 01/11/21 TIME: 14:35 Chief Complaint: Chief Complain: Altered mental status. History of Present Illness: HPI: History obtained from discussion with ED physician, chart review and nurses: Patient is a 40-year-old female with no known significant past medical history who presents with an overdose likely due to opioids. According to the mother who called EMS, she was worried that her daughter did not show for work so she checked on her at home. When EMS came to the house they found her unresponsive and there was powdery substance below his nose. She also had pinpoint pupils that were not reversible at but they were equal. Narcan was given and on arrival to the ED she was started on Narcan drip. Patient was intubated and se dated. Past Medical/Surgical History: PMH/PSH: History of breast lumps removed no other surgical or medical history. Allergies: Allergies: Coded Allergies: Metronidazole HCl (Verified Allergy, Intermediate, RASH, SKIN PEELING, 04/19/13) Nitrofurantoin Macrocrystal (Verified Allergy, Intermediate, RASH, SKIN PEELING, 04/19/13) doxycycline (Verified Allergy, Intermediate, SKIN PEELING, RASH, 04/19/13) metronidazole (Verified Allergy, Intermediate, RASH, SKIN PEELING, 04/19/13) nitrofurantoin (Verified Allergy, Intermediate, RASH, SKIN PEELING, 04/19/13) Family History: Family History: Reviewed with no relevant findings Social History: Social History: Unable to obtain due to intubation Current Medications: Current Medications Current Medications Norepinephrine Bitartrate 8 mg/ Dextrose 258 ml @ 0 mls/hr 1X ONCE IV Last administered on 01/11/21at 13:26; Start 01/11/21 at 12:45; Stop 01/11/21 at 12:46; Status DC Naloxone HCl 4 mg/ Sodium Chloride 254 ml @ 0 mls/hr 1X ONCE IV Last administered on 01/11/21at 13:24; Start 01/11/21 at 12:45; Stop 01/11/21 at 12:46; Status DC Lorazepam (Ativan Inj) 1 mg PRN Q1HR PRN IV SEE COMMENTS; Start 01/11/21 at 13:30 Lorazepam (Ativan Inj) 2 mg PRN Q1HR PRN IV SEE COMMENTS; Start 01/11/21 at 13:30 Propofol 100 ml @ 0 mls/hr CONT PRN IV PER PROTOCOL Last administered on 01/11/21at 13:51; Start 01/11/21 at 13:30 Chlorhexidine Gluconate (Peridex) 15 ml BID MM ; Start 01/11/21 at 21:00 Ketamine HCl (Ketamine) 500 mg STK-MED ONCE .ROUTE ; Start 01/11/21 at 13:41; Stop 01/11/21 at 13:41; Status DC Rocuronium [place] (Zemuron) 50 mg STK-MED ONCE .ROUTE ; Start 01/11/21 at 13:41; Stop 01/11/21 at 13:41; Status DC Dextrose (Dextrose 50%-Water Syringe) 25 gm 1X ONCE IV Last administered on 01/11/21at 14:01; Start 01/11/21 at 14:00; Stop 01/11/21 at 14:03; Status DC Dextrose (Dextrose 50%-Water Syringe) 12.5 gm PRN Q15MIN PRN IV SEE COMMENTS; Start 01/11/21 at 14:15 Active Scripts Active Keflex (Cephalexin) 500 Mg Capsule 500 Mg PO QID 5 Days Naprosyn (Naproxen) 500 Mg Tablet 1 Tab PO BID Ferrous Sulfate 325 Mg Tablet 1 Tab PO BID Oxycodone-Acetaminophen 5-325 (Oxycodone Hcl/Acetaminophen) 1 Each Tablet 2 Tab PO PRN Q4HRS PRN Ultram (Tramadol Hcl) 50 Mg Tablet 1 Tab PO Q6HRS Robaxin (Methocarbamol) 500 Mg Tablet 1 Tab PO TID Ultram (Tramadol Hcl) 50 Mg Tablet 1 Tab PO Q6HRS Zyrtec (Cetirizine Hcl) 10 Mg Tablet 1 Tab PO DAILY Hydroxyzine Pamoate 50 Mg Capsule 1 Cap PO TID PRN Prednisone 50 Mg Tablet 1 Tab PO DAILY Triamcinolone Acetonide 0.1% Oint (Triamcinolone Acetonide) 15 Gm Oint...g. 1 Vashti TP BID [place] 5-325 Tablet (Acetaminophen/Hydrocodone Bitart) 1 Each Tablet 1-2 Tab PO Q4-6HRS Ibuprofen 600 Mg Tablet 600 Mg PO PRN Q6HRS PRN Ultram (Tramadol Hcl) 50 Mg Tablet 50 Mg PO Q6H PRN ROS: Review of Systems Review of System Unable to obtain due to intubation Physical Exam: Vital Signs: Vital Signs Date Time Temp Pulse Resp B/P (MAP) Pulse Ox O2 Delivery O2 Flow Rate FiO2 01/11/21 13:00 100 BiPAP/CPAP 01/11/21 12:34 119 30 70/55 (60) 15.0 Physcial Exam: General: Intubated and sedated HEENT: Pupils equally round and reactive to light, EOMI, no discharge, normal conjunctiva Neck: Supple, no nuchal rigidity, no JVD, trachea midline, no tenderness Cardiac: RRR, no murmurs, no gallops, no rubs Chest/Lungs: CTAB, no wheeze, no rhonchi, no crackles Abdomen: soft, non-distended, no guarding, no peritoneal signs, non-tender Back: No tenderness Extremities: no edema, pulses intact, non-tender,capillary refill <3 sec bilateral upper and lower extremities, Neuro: Sedated Labs: Labs: Laboratory Tests Test 01/11/21 13:04 01/11/21 13:25 01/11/21 14:28 Urine Test Negative (NEG) White Blood Count 15.5 x10^3/uL (4.0-11.0) Red Blood Count 4.74 x10^6/uL (3.50-5.40) Hemoglobin 13.7 g/dL (12.0-15.5) Hematocrit 43.6 % (36.0-47.0) Mean Corpuscular Volume 92 fL (79-100) Mean Corpuscular Hemoglobin 29 pg (25-35) Mean Corpuscular Hemoglobin Concent 31 g/dL (31-37) Red Cell Distribution Width 14.0 % (11.5-14.5) Platelet Count 344 x10^3/uL (140-400) Neutrophils (%) (Auto) 84 % (31-73) Lymphocytes (%) (Auto) 7 % (24-48) Monocytes (%) (Auto) 10 % (0-9) Eosinophils (%) (Auto) 0 % (0-3) Basophils (%) (Auto) 0 % (0-3) Neutrophils # (Auto) 12.9 x10^3/uL (1.8-7.7) Lymphocytes # (Auto) 1.0 x10^3/uL (1.0-4.8) Monocytes # (Auto) 1.5 x10^3/uL (0.0-1.1) Eosinophils # (Auto) 0.0 x10^3/uL (0.0-0.7) Basophils # (Auto) 0.0 x10^3/uL (0.0-0.2) Segmented Neutrophils % 47 % (35-66) Band Neutrophils % 32 % (0-9) Lymphocytes % 5 % (24-48) Monocytes % 16 % (0-10) Platelet Estimate Adequate (ADEQUATE) Sodium Level 142 mmol/L (136-145) Potassium Level 4.0 mmol/L (3.5-5.1) Chloride Level 107 mmol/L (98-107) Carbon Dioxide Level 23 mmol/L (21-32) Anion Gap 12 (6-14) Blood Urea Nitrogen 23 mg/dL (7-20) Creatinine 2.2 mg/dL (0.6-1.0) Estimated GFR (Cockcroft-Gault) 30.2 BUN/Creatinine Ratio 10 (6-20) Glucose Level 21 mg/dL (70-99) Lactic Acid Level 4.1 mmol/L (0.4-2.0) Calcium Level 8.0 mg/dL (8.5-10.1) Total Bilirubin 0.2 mg/dL (0.2-1.0) Aspartate Amino Transf (AST/SGOT) 38 U/L (15-37) Alanine Aminotransferase (ALT/SGPT) 23 U/L (14-59) Alkaline Phosphatase 60 U/L (46-116) Total Protein 7.4 g/dL (6.4-8.2) Albumin 3.2 g/dL (3.4-5.0) Albumin/Globulin Ratio 0.8 (1.0-1.7) Glucose (Fingerstick) 69 mg/dL (70-99) Laboratory Tests Test 01/11/21 13:04 01/11/21 13:25 01/11/21 14:28 Urine Test Negative (NEG) White Blood Count 15.5 x10^3/uL (4.0-11.0) Red Blood Count 4.74 x10^6/uL (3.50-5.40) Hemoglobin 13.7 g/dL (12.0-15.5) Hematocrit 43.6 % (36.0-47.0) Mean Corpuscular Volume 92 fL (79-100) Mean Corpuscular Hemoglobin 29 pg (25-35) Mean Corpuscular Hemoglobin Concent 31 g/dL (31-37) Red Cell Distribution Width 14.0 % (11.5-14.5) Platelet Count 344 x10^3/uL (140-400) Neutrophils (%) (Auto) 84 % (31-73) Lymphocytes (%) (Auto) 7 % (24-48) Monocytes (%) (Auto) 10 % (0-9) Eosinophils (%) (Auto) 0 % (0-3) Basophils (%) (Auto) 0 % (0-3) Neutrophils # (Auto) 12.9 x10^3/uL (1.8-7.7) Lymphocytes # (Auto) 1.0 x10^3/uL (1.0-4.8) Monocytes # (Auto) 1.5 x10^3/uL (0.0-1.1) Eosinophils # (Auto) 0.0 x10^3/uL (0.0-0.7) Basophils # (Auto) 0.0 x10^3/uL (0.0-0.2) Segmented Neutrophils % 47 % (35-66) Band Neutrophils % 32 % (0-9) Lymphocytes % 5 % (24-48) Monocytes % 16 % (0-10) Platelet Estimate Adequate (ADEQUATE) Sodium Level 142 mmol/L (136-145) Potassium Level 4.0 mmol/L (3.5-5.1) Chloride Level 107 mmol/L (98-107) Carbon Dioxide Level 23 mmol/L (21-32) Anion Gap 12 (6-14) Blood Urea Nitrogen 23 mg/dL (7-20) Creatinine 2.2 mg/dL (0.6-1.0) Estimated GFR (Cockcroft-Gault) 30.2 BUN/Creatinine Ratio 10 (6-20) Glucose Level 21 mg/dL (70-99) Lactic Acid Level 4.1 mmol/L (0.4-2.0) Calcium Level 8.0 mg/dL (8.5-10.1) Total Bilirubin 0.2 mg/dL (0.2-1.0) Aspartate Amino Transf (AST/SGOT) 38 U/L (15-37) Alanine Aminotransferase (ALT/SGPT) 23 U/L (14-59) Alkaline Phosphatase 60 U/L (46-116) Total Protein 7.4 g/dL (6.4-8.2) Albumin 3.2 g/dL (3.4-5.0) Albumin/Globulin Ratio 0.8 (1.0-1.7) Glucose (Fingerstick) 69 mg/dL (70-99) Images: Images PROCEDURE: CT HEAD WO CONTRAST IMPRESSION: No acute intracranial hemorrhage. PROCEDURE: CHEST AP ONLY EXAMINATION: XR CHEST 2V IMPRESSION: Patchy airspace disease/edema in the central right lung and mild patchy airspace disease in the left upper lung zone. Endotracheal and enteric tubes in satisfactory positions. Assessment/Plan Assessment/Plan Sepsis Concern for aspiration pneumonitis acute metabolic and toxic encephalopathy Polysubstance overdose Hemodynamic instability requiring multiple IV fluid boluses Hypothermia FADI due to vasomotor nephropathy Symptomatic hypoglycemia Lactic acidosis Moderate protein malnutrition Admit to ICU for further management Pulmonology consult for ventilator management Continue sedation IV Continue Narcan drip Pending tox screen Continue rewarming with bear hugger Continue IV fluids Continue empiric IV antibiotics Pending blood and urine cultures Hypoglycemia protocol Start trickle tube feeds while intubated Lovenox for DVT prophylaxis Protonix while intubated GI prophylaxis ADA diet CODE STATUS full Discussed with RN and SW Disposition inpatient management as above DPOA: Mom A total of 55 minutes of critical care time was spent in reviewing chart, labs, and images. Discussed with RN and SW. Justifications for Admission Other Justification JAZZY PROCTOR MD Jan 11, 2021 14:36
[2021-01-11] MEDS ORDERED: PIPERACILLIN/TAZOBACTAM 4.5 GM in IV NORMAL SALINE 100ML 100 ML IV ONE (14:45)
[2021-01-11 15:43] LABS: BARBITURATES NEG (NEG); BENZODIAZEPINES NEG (NEG); CANNABINOIDS NEG (NEG); COCAINE POS (NEG); METHADONE NEG (NEG); OPIATES NEG (NEG); PHENCYCLIDINE NEG (NEG)
[2021-01-11] MEDS ORDERED: SENNOSIDES 8.6 MG TABLET PO PRN (15:45)
[2021-01-11] MEDS ORDERED: PROCHLORPERAZINE 10 MG/2 ML VIAL. IV PRN (15:45)
[2021-01-11] MEDS ORDERED: ONDANSETRON PF 4 MG/2 ML VIAL. IVP PRN (15:45)
[2021-01-11] MEDS ORDERED: ACETAMINOPHEN 325 MG TABLET. PO PRN (15:45)
[2021-01-11 15:46] LABS: AMPHETAMINE/METHAMPHETAMINE POS (NEG)
[2021-01-11] MEDS ORDERED: DOCUSATE 100 MG/10 ML SOLUTION. PO PRN (16:00)
--- NOTE | 2021-01-11 16:50 | EKG ---
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
[2021-01-11 17:07] LABS: BASE EXCESS COOX -7 mmol/L (-3-3); HCO3 COOX 19 mmol/L (21-28); METHEMOGLOBIN 0.3 % (0.0-1.9); PCO2 COOX 39 mmHg (35-46); PO2 COOX 454 mmHg (85-108); SAT O2 COOX 100 % (92-99)
[2021-01-11] MEDS ORDERED: IV NORMAL SALINE 500ML BAG 500 ML IV PRN (17:45)
[2021-01-11] MEDS ORDERED: ATROPINE 0.5 MG/5 ML DISP.SYRINGE. IV PRN (17:45)
[2021-01-11] MEDS ORDERED: PIP/TAZO PER PHARMACY MC PRN (18:00)
[2021-01-11] MEDS ORDERED: NALOXONE 0.4 MG/ML VIAL. ONE (18:00)
[2021-01-11] MEDS ORDERED: EPINEPHrine SYRINGE 1 MG/10 ML SYRINGE ONE (18:00)
[2021-01-11] MEDS: CHLORHEXIDINE 0.12% 15 ML MOUTHWASH. MM SCH (21:42)
[2021-01-11] MEDS: PIPERACILLIN/TAZOBACTAM 3.375 GM in IV NORMAL SALINE 50ML 50 ML IV SCH (21:43)
[2021-01-11] MEDS: ENOXAPARIN 40 MG/0.4 ML SYRINGE. SQ SCH (21:43)
[2021-01-12] VITALS (28 sets, daily range): BP systolic 68–153; BP diastolic 40–85
[2021-01-12] MEDS: DEXMEDETOMIDINE 400 MCG in IV NORMAL SALINE 100ML 96 ML IV PRN ×2 (01:11→09:00)
[2021-01-12] MEDS: PROPOFOL 100 ML IV PRN (02:27)
--- NOTE | 2021-01-12 05:27 | NUR ---
Nursing Note: Pt was only grimacing to pain early in shift. Later on in shift after midnight, patient opens eyes spontaneously and reaches for ET tube, trying to sit up. Patient able to look at me and follow simple commands like shake her head, continues to be agitated, started patient on precedex, and low dose propofol. Still awaiting covid pcr
[2021-01-12 05:37] LABS: BASO % 0 % (0-3); EOS % 0 % (0-3); HEMOGLOBIN 11.8 g/dL (12.0-15.5); LYMPH # 1.5 x10^3/uL (1.0-4.8); LYMPH % 13 % (24-48); MEAN CORPUSCULAR HEMOGLOBIN 29 pg (25-35); MEAN CORPUSCULAR HGB CONC 33 g/dL (31-37); MEAN CORPUSCULAR VOLUME 88 fL (79-100); MONO # 0.7 x10^3/uL (0.0-1.1); MONO % 6 % (0-9); NEUT # 9.6 x10^3/uL (1.8-7.7); NEUT % 82 % (31-73); PLATELET COUNT 267 x10^3/uL (140-400); RED BLOOD COUNT 4.08 x10^6/uL (3.50-5.40); RED CELL DISTRIBUTION WIDTH 13.6 % (11.5-14.5); WHITE BLOOD COUNT 11.8 x10^3/uL (4.0-11.0)
[2021-01-12 05:46] LABS: CALCIUM 8.3 mg/dL (8.5-10.1); CREATININE 1.4 mg/dL (0.6-1.0); GFR 50.9; MAGNESIUM 1.9 mg/dL (1.8-2.4); PHOSPHORUS 4.8 mg/dL (2.6-4.7); POTASSIUM 4.3 mmol/L (3.5-5.1)
[2021-01-12] MEDS: PIPERACILLIN/TAZOBACTAM 3.375 GM in IV NORMAL SALINE 50ML 50 ML IV SCH ×4 (06:08→23:51)
[2021-01-12] MEDS ORDERED: NOREPINEPHRINE VIAL 8 MG in IV DEXTROSE 5% 250 ML IV PRN (06:45)
[2021-01-12 08:24] LABS: BASE EXCESS ABG -3 mmol/L (-3-3); HCO3 ABG 20 mmol/L (21-28); PCO2 ABG 32 mmHg (35-46); PO2 ABG 117 mmHg (85-108); SAT O2 ABG 98 % (92-99)
[2021-01-12 08:25] LABS: FIO2 ABG 40
[2021-01-12] MEDS: PANTOPRAZOLE IV PUSH 40 MG VIAL. IVP SCH (10:36)
[2021-01-12] MEDS: CHLORHEXIDINE 0.12% 15 ML MOUTHWASH. MM SCH (10:36)
--- NOTE | 2021-01-12 10:50 | CONS ---
DATE OF CONSULTATION: 01/12/2021 ATTENDING PHYSICIAN: Dr. Cintron. REASON FOR CONSULTATION: Respiratory failure. HISTORY OF PRESENT ILLNESS: The patient is a 40-year-old female who has no significant past medical history. 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 She was brought into the hospital with respiratory failure due to overdose of meth and cocaine. Her urine drug screen was positive for meth and cocaine. She was intubated due to altered mental status. Arterial blood gases showed a pH of 7.30, pCO2 of 39, pO2 of 454. Follow up ABG showed a pH of 7.42, pCO2 of 32 and a pO2 of 117 with bicarbonate of 20. Her chest x-ray was reviewed and it shows consolidation involving the right upper lobe. There is minimal infiltrate in left upper lobe as well. Currently, she is sedated. The patient did receive Narcan. PAST MEDICAL HISTORY: Essentially unremarkable except history of breast lumps removed. No other surgeries. ALLERGIES: METRONIDAZOLE, NITROFURANTOIN, MACROCRYSTAL, DOXYCYCLINE, METRONIDAZOLE. REVIEW OF SYSTEMS: Unable to obtain from the patient. SOCIAL HISTORY: Apparently cocaine and meth use. PHYSICAL EXAMINATION: GENERAL: She is intubated and sedated. She is on a low dose Levophed. VITAL SIGNS: Blood pressure is in the high 80s and low 90s. Pulse ox is 100%. NECK: Supple. LUNGS: Clear breath sounds. CARDIOVASCULAR: With a regular rate. ABDOMEN: Soft. EXTREMITIES: With no pitting edema. LABORATORY DATA: Labs were reviewed. COVID is negative by rapid testing. BUN 20, creatinine 1.4. Lactic acid was 4.1, now down to 2.3. White cell count 15.5, now down to 11.8. IMPRESSION: 1. Acute hypoxic respiratory failure secondary to toxic encephalopathy. 2. Toxic encephalopathy related to cocaine and meth overdose. 3. Abnormal chest x-ray with highly suspected aspiration pneumonitis. 4. No significant tobacco history reported. 5. Mild acute kidney injury. 6. Leukocytosis secondary to aspiration pneumonia and stress. 7. Lactic acidosis, likely secondary to hypoxia, improving. RECOMMENDATIONS: 1. Continue present assist control mode. We will wean sedation and assess mental status. 2. Continue with empiric antibiotic, Zosyn. 3. Lovenox for DVT prophylaxis. 4. P.r.n. bronchodilators. 5. Watch for withdrawal from drug. 6. Discussed with RN and RT. We will follow chest x-ray. Total critical care time [address]: Arlette TID: [id number]
--- NOTE | 2021-01-12 11:37 | PDOC ---
[facility] PROGRESS NOTE Date of Service DOS: DATE: 01/12/21 TIME: 11:20 Chief Complaint Chief Complaint Altered mental status Aspiration pneumonitis Hypoglycemia Opiate overdose Respiratory failure with hypoxia History of polypharmacy Allergic rhinitis Muscle spasms Anemia Osteoarthritis Narcotic dependence on multiple prescription narcotics History of Present Illness History of Present Illness Patient is a 40-year-old female with no known significant past medical history who presents with an overdose likely due to opioids. According to the mother who called EMS, she was worried that her daughter did not show for work so she checked on her at home. When EMS came to the house they found her unresponsive and there was powdery substance below his nose. She also had pinpoint pupils that were not reversible at but they were equal. Narcan was given and on arrival to the ED she was started on Narcan drip. Patient was intubated and sedated. 01/12/2021: Patient seen and examined in the ICU. On mechanical ventilation. Vent settings: AC/20/450/40% + 5 PEEP. Her oxygen saturation is 100%. pH is 7.42. Sedated with IV dexmedetomidine and propofol. On IV levophed and zosyn. Narcan drip discontinued yesterday (01/11). She has mitts on for patient safety. SCD for DVT. [place] to BSD. Tox screen from 01/11 was positive for amphetamine/methamphetamine and cocaine. Head CT on 01/11 showed no acute intracranial hemorrhage. Chest x-ray from 01/11 showed patchy airspace disease/edema in the central right lung and mild patchy airspace disease in the left upper lung zone. Endotracheal and enteric tubes in satisfactory positions. COVID negative. Discussed with RN. Chart reviewed. Vitals/I&O Vitals/I&O: Vital Signs Date Time Temp Pulse Resp B/P (MAP) Pulse Ox O2 Delivery O2 Flow Rate FiO2 01/12/21 10:00 77 20 119/69 (86) 100 Ventilator 01/12/21 04:15 15.0 01/12/21 04:00 98.3 98.3 I & O 01/11/21 01/11/21 01/12/21 15:00 23:00 07:00 Intake Total 49.0 ml 50 ml 660 ml Output Total 950 ml 1275 ml Balance 49.0 ml -900 ml -615 ml Physical Exam General: Other (Patient sedated on mechanical ventilation) Heart: Regular rate Abdomen: Normal bowel sounds Extremities: No clubbing Skin: No rashes Labs Labs: Laboratory Tests Test 01/11/21 13:04 01/11/21 13:25 01/11/21 14:28 01/11/21 15:26 Urine Test Negative (NEG) Urine Opiates Screen Neg (NEG) Urine Methadone Screen Neg (NEG) Urine Barbiturates Neg (NEG) Urine Phencyclidine Screen Neg (NEG) Urine Amphetamine/Methamphetamine Pos (NEG) Urine Benzodiazepines Screen Neg (NEG) Urine Cocaine Screen Pos (NEG) Urine Cannabinoids Screen Neg (NEG) Urine Ethyl Alcohol Neg (NEG) White Blood Count 15.5 x10^3/uL (4.0-11.0) Red Blood Count 4.74 x10^6/uL (3.50-5.40) Hemoglobin 13.7 g/dL (12.0-15.5) Hematocrit 43.6 % (36.0-47.0) Mean Corpuscular Volume 92 fL (79-100) Mean Corpuscular Hemoglobin 29 pg (25-35) Mean Corpuscular Hemoglobin Concent 31 g/dL (31-37) Red Cell Distribution Width 14.0 % (11.5-14.5) Platelet Count 344 x10^3/uL (140-400) Neutrophils (%) (Auto) 84 % (31-73) Lymphocytes (%) (Auto) 7 % (24-48) Monocytes (%) (Auto) 10 % (0-9) Eosinophils (%) (Auto) 0 % (0-3) Basophils (%) (Auto) 0 % (0-3) Neutrophils # (Auto) 12.9 x10^3/uL (1.8-7.7) Lymphocytes # (Auto) 1.0 x10^3/uL (1.0-4.8) Monocytes # (Auto) 1.5 x10^3/uL (0.0-1.1) Eosinophils # (Auto) 0.0 x10^3/uL (0.0-0.7) Basophils # (Auto) 0.0 x10^3/uL (0.0-0.2) Segmented Neutrophils % 47 % (35-66) Band Neutrophils % 32 % (0-9) Lymphocytes % 5 % (24-48) Monocytes % 16 % (0-10) Platelet Estimate Adequate (ADEQUATE) Sodium Level 142 mmol/L (136-145) Potassium Level 4.0 mmol/L (3.5-5.1) Chloride Level 107 mmol/L (98-107) Carbon Dioxide Level 23 mmol/L (21-32) Anion Gap 12 (6-14) Blood Urea Nitrogen 23 mg/dL (7-20) Creatinine 2.2 mg/dL (0.6-1.0) Estimated GFR (Cockcroft-Gault) 30.2 BUN/Creatinine Ratio 10 (6-20) Glucose Level 21 mg/dL (70-99) Lactic Acid Level 4.1 mmol/L (0.4-2.0) Calcium Level 8.0 mg/dL (8.5-10.1) Total Bilirubin 0.2 mg/dL (0.2-1.0) Aspartate Amino Transf (AST/SGOT) 38 U/L (15-37) Alanine Aminotransferase (ALT/SGPT) 23 U/L (14-59) Alkaline Phosphatase 60 U/L (46-116) Total Protein 7.4 g/dL (6.4-8.2) Albumin 3.2 g/dL (3.4-5.0) Albumin/Globulin Ratio 0.8 (1.0-1.7) Glucose (Fingerstick) 69 mg/dL (70-99) SARS-CoV-2 RNA (EVERARDO) Negative (Negative) Test 01/11/21 16:12 01/11/21 16:52 01/11/21 17:00 01/12/21 05:00 Glucose (Fingerstick) 98 mg/dL (70-99) Lactic Acid Level 2.3 mmol/L (0.4-2.0) O2 Saturation 100 % (92-99) Arterial Blood pH 7.30 (7.35-7.45) Arterial Blood pCO2 at Patient Temp 39 mmHg (35-46) Arterial Blood pO2 at Patient Temp 454 mmHg (85-108) Arterial Blood HCO3 19 mmol/L (21-28) Arterial Blood Base Excess -7 mmol/L (-3-3) Oxyhemoglobin 99.0 % Methemoglobin 0.3 % (0.0-1.9) Carbon Monoxide, Quantitative 0.2 % (0.0-1.9) FiO2 100 White Blood Count 11.8 x10^3/uL (4.0-11.0) Red Blood Count 4.08 x10^6/uL (3.50-5.40) Hemoglobin 11.8 g/dL (12.0-15.5) Hematocrit 36.0 % (36.0-47.0) Mean Corpuscular Volume 88 fL (79-100) Mean Corpuscular Hemoglobin 29 pg (25-35) Mean Corpuscular Hemoglobin Concent 33 g/dL (31-37) Red Cell Distribution Width 13.6 % (11.5-14.5) Platelet Count 267 x10^3/uL (140-400) Neutrophils (%) (Auto) 82 % (31-73) Lymphocytes (%) (Auto) 13 % (24-48) Monocytes (%) (Auto) 6 % (0-9) Eosinophils (%) (Auto) 0 % (0-3) Basophils (%) (Auto) 0 % (0-3) Neutrophils # (Auto) 9.6 x10^3/uL (1.8-7.7) Lymphocytes # (Auto) 1.5 x10^3/uL (1.0-4.8) Monocytes # (Auto) 0.7 x10^3/uL (0.0-1.1) Eosinophils # (Auto) 0.0 x10^3/uL (0.0-0.7) Basophils # (Auto) 0.0 x10^3/uL (0.0-0.2) Sodium Level 142 mmol/L (136-145) Potassium Level 4.3 mmol/L (3.5-5.1) Chloride Level 107 mmol/L (98-107) Carbon Dioxide Level 26 mmol/L (21-32) Anion Gap 9 (6-14) Blood Urea Nitrogen 20 mg/dL (7-20) Creatinine 1.4 mg/dL (0.6-1.0) Estimated GFR (Cockcroft-Gault) 50.9 Glucose Level 113 mg/dL (70-99) Calcium Level 8.3 mg/dL (8.5-10.1) Phosphorus Level 4.8 mg/dL (2.6-4.7) Magnesium Level 1.9 mg/dL (1.8-2.4) Test 01/12/21 08:00 O2 Saturation 98 % (92-99) Arterial Blood pH 7.42 (7.35-7.45) Arterial Blood pCO2 at Patient Temp 32 mmHg (35-46) Arterial Blood pO2 at Patient Temp 117 mmHg (85-108) Arterial Blood HCO3 20 mmol/L (21-28) Arterial Blood Base Excess -3 mmol/L (-3-3) FiO2 40 Review of Systems Review of Systems: Gastrointestinal: No nausea or vomiting. Genitourinary: No urinary frequency or dysuria. Assessment and Plan Assessmemt and Plan Problems Medical Problems: (1) Altered mental status Status: Acute (2) Aspiration pneumonitis Status: Acute (3) Hypoglycemia Status: Acute (4) Opiate overdose Status: Acute (5) Respiratory failure with hypoxia Status: Acute Probable narcotic overdose? (Found down with a white powdery substance under her nose but drug screen surprisingly did not show opiates, but drug screen also positive for methamphetamine and cocaine) Altered mental status Aspiration pneumonitis Hypoglycemia Opiate overdose Respiratory failure with hypoxia History of polypharmacy Allergic rhinitis Muscle spasms Anemia Osteoarthritis Narcotic dependence on multiple prescription narcotics Plan: 1) Continue ICU management 2) Vent weaning 3) Wean levophed 4) Continue sedation with propofol and dexmedetomidine 5) Continue IV zosyn 6) Continue IV dextrose for hypoglycemia 7) Continue Lovenox for DVT prophylaxis 8) Trend labs (hgb 11.8) 9) Full code professional services consultant consult for drug rehab Prognosis guarded Appreciate subspecialist input CC time 32-minute Comment Review of Relevant I have reviewed the following items pilo (where applicable) has been applied. Medications: Current Medications Medications (Trade) Dose Ordered Sig/Chaparrita Route PRN Reason Start Time Stop Time Status Last Admin Dose Admin Norepinephrine Bitartrate 8 mg/ Dextrose 258 ml @ 0 mls/hr 1X ONCE IV 01/11/21 12:45 01/11/21 12:46 DC 01/11/21 13:26 Naloxone HCl 4 mg/ Sodium Chloride 254 ml @ 0 mls/hr 1X ONCE IV 01/11/21 12:45 01/11/21 12:46 DC 01/11/21 13:24 Propofol 100 ml @ 0 mls/hr CONT PRN IV PER PROTOCOL 01/11/21 13:30 01/12/21 02:27 Chlorhexidine Gluconate (Peridex) 15 ml BID MM 01/11/21 21:00 01/12/21 10:36 Dextrose (Dextrose 50%-Water Syringe) 25 gm 1X ONCE IV 01/11/21 14:00 01/11/21 14:03 DC 01/11/21 14:01 Dextrose (Dextrose 50%-Water Syringe) 12.5 gm PRN Q15MIN PRN IV SEE COMMENTS 01/11/21 14:15 01/11/21 14:36 Piperacillin Sod/ Tazobactam Sod 4.5 gm/Sodium Chloride 100 ml @ 200 mls/hr 1X ONCE IV 01/11/21 14:45 01/11/21 15:14 DC 01/11/21 14:45 Enoxaparin Sodium (Lovenox 40mg Syringe) 40 mg Q24H SQ 01/11/21 21:00 01/11/21 21:43 Pantoprazole Sodium (PROTONIX VIAL for IV PUSH) 40 mg DAILYAC IVP 01/12/21 07:30 01/12/21 10:36 Dexmedetomidine HCl 400 mcg/ Sodium Chloride 100 ml @ 0 mls/hr CONT PRN IV PER PROTOCOL 01/11/21 17:45 01/12/21 09:00 Piperacillin Sod/ Tazobactam Sod 3.375 gm/Sodium Chloride 50 ml @ 100 mls/hr Q6HRS IV 01/11/21 22:00 01/12/21 06:08 Norepinephrine Bitartrate 8 mg/ Dextrose 258 ml @ 17.473 mls/ hr CONT PRN IV PER PROTOCOL 01/12/21 06:45 01/12/21 06:45 Justifications for Admission Other Justification Opioid overdose IMELDA DE LA GARZA III DO Jan 12, 2021 11:37
[2021-01-12 16:08] LABS: BASE EXCESS ABG 0 mmol/L (-3-3); HCO3 ABG 25 mmol/L (21-28); PCO2 ABG 42 mmHg (35-46); PO2 ABG 134 mmHg (85-108); SAT O2 ABG 98 % (92-99)
[2021-01-12 16:11] LABS: FIO2 ABG 40
--- NOTE | 2021-01-12 16:29 | NUR ---
Patient extubated at 1620. Patient tolerated extubation well. VS are stable and O2 is 100%. Patient is sleeping comfortably and breathing effectively. No discomfort seen. Patient family is at bedside.
[2021-01-12] MEDS: ENOXAPARIN 40 MG/0.4 ML SYRINGE. SQ SCH (20:57)
[2021-01-13] VITALS (18 sets, daily range): BP systolic 101–150; BP diastolic 56–87
[2021-01-13 05:28] LABS: BASO % 0 % (0-3); EOS # 0.1 x10^3/uL (0.0-0.7); EOS % 1 % (0-3); HEMOGLOBIN 10.8 g/dL (12.0-15.5); LYMPH # 2.4 x10^3/uL (1.0-4.8); LYMPH % 22 % (24-48); MEAN CORPUSCULAR HEMOGLOBIN 30 pg (25-35); MEAN CORPUSCULAR HGB CONC 34 g/dL (31-37); MEAN CORPUSCULAR VOLUME 88 fL (79-100); MONO # 0.5 x10^3/uL (0.0-1.1); MONO % 5 % (0-9); NEUT % 73 % (31-73); PLATELET COUNT 251 x10^3/uL (140-400); RED BLOOD COUNT 3.65 x10^6/uL (3.50-5.40); RED CELL DISTRIBUTION WIDTH 13.6 % (11.5-14.5)
[2021-01-13] MEDS: PIPERACILLIN/TAZOBACTAM 3.375 GM in IV NORMAL SALINE 50ML 50 ML IV SCH ×3 (05:33→17:28)
[2021-01-13 05:42] LABS: CALCIUM 8.4 mg/dL (8.5-10.1); CREATININE 0.8 mg/dL (0.6-1.0); GFR 97.1; POTASSIUM 3.7 mmol/L (3.5-5.1)
[2021-01-13] MEDS: PANTOPRAZOLE IV PUSH 40 MG VIAL. IVP SCH (10:25)
--- NOTE | 2021-01-13 11:07 | PDOC ---
PULMONARY PROGRESS NOTES DATE: 01/13/21 TIME: 11:06 Subjective Patient extubated 01/12/2021. Doing well on nasal cannula Vitals Vital Signs Date Time Temp Pulse Resp B/P (MAP) Pulse Ox O2 Delivery O2 Flow Rate FiO2 01/13/21 10:00 87 17 115/66 (82) 94 Nasal Cannula 2.0 01/13/21 08:00 98.6 98.6 General: Alert, No acute distress Lungs: Clear Cardiovascular: S1 Abdomen: Soft Neuro Exam: Alert Extremities: No Edema Skin: Warm Labs Laboratory Tests Test 01/11/21 13:04 01/11/21 13:25 01/11/21 14:28 01/11/21 15:26 Urine Test Negative (NEG) Urine Opiates Screen Neg (NEG) Urine Methadone Screen Neg (NEG) Urine Barbiturates Neg (NEG) Urine Phencyclidine Screen Neg (NEG) Urine Amphetamine/Methamphetamine Pos (NEG) Urine Benzodiazepines Screen Neg (NEG) Urine Cocaine Screen Pos (NEG) Urine Cannabinoids Screen Neg (NEG) Urine Ethyl Alcohol Neg (NEG) White Blood Count 15.5 x10^3/uL (4.0-11.0) Red Blood Count 4.74 x10^6/uL (3.50-5.40) Hemoglobin 13.7 g/dL (12.0-15.5) Hematocrit 43.6 % (36.0-47.0) Mean Corpuscular Volume 92 fL (79-100) Mean Corpuscular Hemoglobin 29 pg (25-35) Mean Corpuscular Hemoglobin Concent 31 g/dL (31-37) Red Cell Distribution Width 14.0 % (11.5-14.5) Platelet Count 344 x10^3/uL (140-400) Neutrophils (%) (Auto) 84 % (31-73) Lymphocytes (%) (Auto) 7 % (24-48) Monocytes (%) (Auto) 10 % (0-9) Eosinophils (%) (Auto) 0 % (0-3) Basophils (%) (Auto) 0 % (0-3) Neutrophils # (Auto) 12.9 x10^3/uL (1.8-7.7) Lymphocytes # (Auto) 1.0 x10^3/uL (1.0-4.8) Monocytes # (Auto) 1.5 x10^3/uL (0.0-1.1) Eosinophils # (Auto) 0.0 x10^3/uL (0.0-0.7) Basophils # (Auto) 0.0 x10^3/uL (0.0-0.2) Segmented Neutrophils % 47 % (35-66) Band Neutrophils % 32 % (0-9) Lymphocytes % 5 % (24-48) Monocytes % 16 % (0-10) Platelet Estimate Adequate (ADEQUATE) Sodium Level 142 mmol/L (136-145) Potassium Level 4.0 mmol/L (3.5-5.1) Chloride Level 107 mmol/L (98-107) Carbon Dioxide Level 23 mmol/L (21-32) Anion Gap 12 (6-14) Blood Urea Nitrogen 23 mg/dL (7-20) Creatinine 2.2 mg/dL (0.6-1.0) Estimated GFR (Cockcroft-Gault) 30.2 BUN/Creatinine Ratio 10 (6-20) Glucose Level 21 mg/dL (70-99) Lactic Acid Level 4.1 mmol/L (0.4-2.0) Calcium Level 8.0 mg/dL (8.5-10.1) Total Bilirubin 0.2 mg/dL (0.2-1.0) Aspartate Amino Transf (AST/SGOT) 38 U/L (15-37) Alanine Aminotransferase (ALT/SGPT) 23 U/L (14-59) Alkaline Phosphatase 60 U/L (46-116) Total Protein 7.4 g/dL (6.4-8.2) Albumin 3.2 g/dL (3.4-5.0) Albumin/Globulin Ratio 0.8 (1.0-1.7) Glucose (Fingerstick) 69 mg/dL (70-99) SARS-CoV-2 RNA (EVERARDO) Negative (Negative) Test 01/11/21 16:12 01/11/21 16:52 01/11/21 17:00 01/12/21 05:00 Glucose (Fingerstick) 98 mg/dL (70-99) Lactic Acid Level 2.3 mmol/L (0.4-2.0) O2 Saturation 100 % (92-99) Arterial Blood pH 7.30 (7.35-7.45) Arterial Blood pCO2 at Patient Temp 39 mmHg (35-46) Arterial Blood pO2 at Patient Temp 454 mmHg (85-108) Arterial Blood HCO3 19 mmol/L (21-28) Arterial Blood Base Excess -7 mmol/L (-3-3) Oxyhemoglobin 99.0 % Methemoglobin 0.3 % (0.0-1.9) Carbon Monoxide, Quantitative 0.2 % (0.0-1.9) FiO2 100 White Blood Count 11.8 x10^3/uL (4.0-11.0) Red Blood Count 4.08 x10^6/uL (3.50-5.40) Hemoglobin 11.8 g/dL (12.0-15.5) Hematocrit 36.0 % (36.0-47.0) Mean Corpuscular Volume 88 fL (79-100) Mean Corpuscular Hemoglobin 29 pg (25-35) Mean Corpuscular Hemoglobin Concent 33 g/dL (31-37) Red Cell Distribution Width 13.6 % (11.5-14.5) Platelet Count 267 x10^3/uL (140-400) Neutrophils (%) (Auto) 82 % (31-73) Lymphocytes (%) (Auto) 13 % (24-48) Monocytes (%) (Auto) 6 % (0-9) Eosinophils (%) (Auto) 0 % (0-3) Basophils (%) (Auto) 0 % (0-3) Neutrophils # (Auto) 9.6 x10^3/uL (1.8-7.7) Lymphocytes # (Auto) 1.5 x10^3/uL (1.0-4.8) Monocytes # (Auto) 0.7 x10^3/uL (0.0-1.1) Eosinophils # (Auto) 0.0 x10^3/uL (0.0-0.7) Basophils # (Auto) 0.0 x10^3/uL (0.0-0.2) Sodium Level 142 mmol/L (136-145) Potassium Level 4.3 mmol/L (3.5-5.1) Chloride Level 107 mmol/L (98-107) Carbon Dioxide Level 26 mmol/L (21-32) Anion Gap 9 (6-14) Blood Urea Nitrogen 20 mg/dL (7-20) Creatinine 1.4 mg/dL (0.6-1.0) Estimated GFR (Cockcroft-Gault) 50.9 Glucose Level 113 mg/dL (70-99) Calcium Level 8.3 mg/dL (8.5-10.1) Phosphorus Level 4.8 mg/dL (2.6-4.7) Magnesium Level 1.9 mg/dL (1.8-2.4) Test 01/12/21 08:00 01/12/21 16:03 01/13/21 05:00 O2 Saturation 98 % (92-99) 98 % (92-99) Arterial Blood pH 7.42 (7.35-7.45) 7.40 (7.35-7.45) Arterial Blood pCO2 at Patient Temp 32 mmHg (35-46) 42 mmHg (35-46) Arterial Blood pO2 at Patient Temp 117 mmHg (85-108) 134 mmHg (85-108) Arterial Blood HCO3 20 mmol/L (21-28) 25 mmol/L (21-28) Arterial Blood Base Excess -3 mmol/L (-3-3) 0 mmol/L (-3-3) FiO2 40 40 White Blood Count 11.0 x10^3/uL (4.0-11.0) Red Blood Count 3.65 x10^6/uL (3.50-5.40) Hemoglobin 10.8 g/dL (12.0-15.5) Hematocrit 32.0 % (36.0-47.0) Mean Corpuscular Volume 88 fL (79-100) Mean Corpuscular Hemoglobin 30 pg (25-35) Mean Corpuscular Hemoglobin Concent 34 g/dL (31-37) Red Cell Distribution Width 13.6 % (11.5-14.5) Platelet Count 251 x10^3/uL (140-400) Neutrophils (%) (Auto) 73 % (31-73) Lymphocytes (%) (Auto) 22 % (24-48) Monocytes (%) (Auto) 5 % (0-9) Eosinophils (%) (Auto) 1 % (0-3) Basophils (%) (Auto) 0 % (0-3) Neutrophils # (Auto) 8.0 x10^3/uL (1.8-7.7) Lymphocytes # (Auto) 2.4 x10^3/uL (1.0-4.8) Monocytes # (Auto) 0.5 x10^3/uL (0.0-1.1) Eosinophils # (Auto) 0.1 x10^3/uL (0.0-0.7) Basophils # (Auto) 0.0 x10^3/uL (0.0-0.2) Sodium Level 142 mmol/L (136-145) Potassium Level 3.7 mmol/L (3.5-5.1) Chloride Level 108 mmol/L (98-107) Carbon Dioxide Level 28 mmol/L (21-32) Anion Gap 6 (6-14) Blood Urea Nitrogen 11 mg/dL (7-20) Creatinine 0.8 mg/dL (0.6-1.0) Estimated GFR (Cockcroft-Gault) 97.1 Glucose Level 102 mg/dL (70-99) Calcium Level 8.4 mg/dL (8.5-10.1) Magnesium Level 2.0 mg/dL (1.8-2.4) Laboratory Tests Test 01/12/21 16:03 01/13/21 05:00 O2 Saturation 98 % (92-99) Arterial Blood pH 7.40 (7.35-7.45) Arterial Blood pCO2 at Patient Temp 42 mmHg (35-46) Arterial Blood pO2 at Patient Temp 134 mmHg (85-108) Arterial Blood HCO3 25 mmol/L (21-28) Arterial Blood Base Excess 0 mmol/L (-3-3) FiO2 40 White Blood Count 11.0 x10^3/uL (4.0-11.0) Red Blood Count 3.65 x10^6/uL (3.50-5.40) Hemoglobin 10.8 g/dL (12.0-15.5) Hematocrit 32.0 % (36.0-47.0) Mean Corpuscular Volume 88 fL (79-100) Mean Corpuscular Hemoglobin 30 pg (25-35) Mean Corpuscular Hemoglobin Concent 34 g/dL (31-37) Red Cell Distribution Width 13.6 % (11.5-14.5) Platelet Count 251 x10^3/uL (140-400) Neutrophils (%) (Auto) 73 % (31-73) Lymphocytes (%) (Auto) 22 % (24-48) Monocytes (%) (Auto) 5 % (0-9) Eosinophils (%) (Auto) 1 % (0-3) Basophils (%) (Auto) 0 % (0-3) Neutrophils # (Auto) 8.0 x10^3/uL (1.8-7.7) Lymphocytes # (Auto) 2.4 x10^3/uL (1.0-4.8) Monocytes # (Auto) 0.5 x10^3/uL (0.0-1.1) Eosinophils # (Auto) 0.1 x10^3/uL (0.0-0.7) Basophils # (Auto) 0.0 x10^3/uL (0.0-0.2) Sodium Level 142 mmol/L (136-145) Potassium Level 3.7 mmol/L (3.5-5.1) Chloride Level 108 mmol/L (98-107) Carbon Dioxide Level 28 mmol/L (21-32) Anion Gap 6 (6-14) Blood Urea Nitrogen 11 mg/dL (7-20) Creatinine 0.8 mg/dL (0.6-1.0) Estimated GFR (Cockcroft-Gault) 97.1 Glucose Level 102 mg/dL (70-99) Calcium Level 8.4 mg/dL (8.5-10.1) Magnesium Level 2.0 mg/dL (1.8-2.4) Medications Active Scripts Medications Dose Route/Sig Max Daily Dose Days Date Category Keflex (Cephalexin) 500 Mg Capsule 500 Mg PO QID 5 12/31/18 Rx Naprosyn (Naproxen) 500 Mg Tablet 1 Tab PO BID 10/28/18 Rx Ferrous Sulfate 325 Mg Tablet 1 Tab PO BID 09/28/17 Rx Oxycodone-Acetaminophen 5-325 (Oxycodone Hcl/Acetaminophen) 1 Each Tablet 2 Tab PO PRN Q4HRS PRN 09/28/17 Rx Ultram (Tramadol Hcl) 50 Mg Tablet 1 Tab PO Q6HRS 06/27/17 Rx Robaxin (Methocarbamol) 500 Mg Tablet 1 Tab PO TID 02/08/17 Rx Ultram (Tramadol Hcl) 50 Mg Tablet 1 Tab PO Q6HRS 02/08/17 Rx Zyrtec (Cetirizine Hcl) 10 Mg Tablet 1 Tab PO DAILY 10/30/16 Rx Hydroxyzine Pamoate 50 Mg Capsule 1 Cap PO TID PRN 10/30/16 Rx Prednisone 50 Mg Tablet 1 Tab PO DAILY 10/30/16 Rx Triamcinolone Acetonide 0.1% Oint (Triamcinolone Acetonide) 15 Gm Oint...g. 1 [place] TP BID 10/30/16 Rx [place] 5-325 Tablet (Acetaminophen/Hydrocodone Bitart) 1 Each Tablet 1-2 Tab PO Q4-6HRS 03/19/16 Rx Ibuprofen 600 Mg Tablet 600 Mg PO PRN Q6HRS PRN 03/10/16 Rx Ultram (Tramadol Hcl) 50 Mg Tablet 50 Mg PO Q6H PRN 03/10/16 Rx Impression . IMPRESSION: 1. Acute hypoxic respiratory failure secondary to toxic encephalopathy. Extubated 01/12. 2. Toxic encephalopathy related to cocaine and meth overdose. 3. Abnormal chest x-ray with highly suspected aspiration pneumonitis. 4. No significant tobacco history reported. 5. Mild acute kidney injury. 6. Leukocytosis secondary to aspiration pneumonia and stress. 7. Lactic acidosis, likely secondary to hypoxia, improving. Plan . RECOMMENDATIONS: 1. Continue present nasal cannula. 2. Continue with empiric antibiotic, Zosyn. 3. Lovenox for DVT prophylaxis. 4. P.r.n. bronchodilators. 5. Watch for withdrawal from drug. 6. Discussed with RN 7. We will repeat chest x-ray in NAYLA Johnson MD Jan 13, 2021 11:07
--- NOTE | 2021-01-13 11:08 | PDOC ---
[facility] PROGRESS NOTE Date of Service DOS: DATE: 01/13/21 TIME: 11:02 Chief Complaint Chief Complaint Altered mental status Aspiration pneumonitis Hypoglycemia Opiate overdose Respiratory failure with hypoxia History of polypharmacy Allergic rhinitis Muscle spasms Anemia Osteoarthritis Narcotic dependence on multiple prescription narcotics History of Present Illness History of Present Illness Patient is a 40-year-old female with no known significant past medical history who presents with an overdose likely due to opioids. According to the mother who called EMS, she was worried that her daughter did not show for work so she checked on her at home. When EMS came to the house they found her unresponsive and there was powdery substance below his nose. She also had pinpoint pupils that were not reversible at but they were equal. Narcan was given and on arrival to the ED she was started on Narcan drip. Patient was intubated and sedated. 01/12/2021: Patient seen and examined in the ICU. On mechanical ventilation. Vent settings: AC/20/450/40% + 5 PEEP. Her oxygen saturation is 100%. pH is 7.42. Sedated with IV dexmedetomidine and propofol. On IV levophed and zosyn. Narcan drip discontinued yesterday (01/11). She has mitts on for patient safety. SCD for DVT. [facility] to [facility]. Tox screen from 01/11 was positive for amphetamine/methamphetamine and cocaine. Head CT on 01/11 showed no acute intracranial hemorrhage. Chest x-ray from 01/11 showed patchy airspace disease/edema in the central right lung and mild patchy airspace disease in the left upper lung zone. Endotracheal and enteric tubes in satisfactory positions. COVID negative. Discussed with RN. Chart reviewed. 01/13/2021: Patient is seen and examined in the ICU. Extubated yesterday (01/12). Awake and off sedation. Her mom and sister are present. A long discussion with them and they understand the situation. They would like her to go to drug rehab and the patient agrees to go. She states she is "feeling better". Her oxygen saturation is 97%. [facility] to [facility]. Hgb 10.8 today. Discussed with RN. Chart reviewed. Vitals/I&O Vitals/I&O: Vital Signs Date Time Temp Pulse Resp B/P (MAP) Pulse Ox O2 Delivery O2 Flow Rate FiO2 01/13/21 10:00 87 17 115/66 (82) 94 Nasal Cannula 2.0 01/13/21 08:00 98.6 98.6 I & O 01/12/21 01/12/21 01/13/21 15:00 23:00 07:00 Intake Total 50 ml 1548 ml 50 ml Output Total 604 ml 510 ml 220 ml Balance -554 ml 1038 ml -170 ml Physical Exam General: Alert Heart: Regular rate Abdomen: Normal bowel sounds Extremities: No clubbing Skin: No rashes Labs Labs: Laboratory Tests Test 01/12/21 16:03 01/13/21 05:00 O2 Saturation 98 % (92-99) Arterial Blood pH 7.40 (7.35-7.45) Arterial Blood pCO2 at Patient Temp 42 mmHg (35-46) Arterial Blood pO2 at Patient Temp 134 mmHg (85-108) Arterial Blood HCO3 25 mmol/L (21-28) Arterial Blood Base Excess 0 mmol/L (-3-3) FiO2 40 White Blood Count 11.0 x10^3/uL (4.0-11.0) Red Blood Count 3.65 x10^6/uL (3.50-5.40) Hemoglobin 10.8 g/dL (12.0-15.5) Hematocrit 32.0 % (36.0-47.0) Mean Corpuscular Volume 88 fL (79-100) Mean Corpuscular Hemoglobin 30 pg (25-35) Mean Corpuscular Hemoglobin Concent 34 g/dL (31-37) Red Cell Distribution Width 13.6 % (11.5-14.5) Platelet Count 251 x10^3/uL (140-400) Neutrophils (%) (Auto) 73 % (31-73) Lymphocytes (%) (Auto) 22 % (24-48) Monocytes (%) (Auto) 5 % (0-9) Eosinophils (%) (Auto) 1 % (0-3) Basophils (%) (Auto) 0 % (0-3) Neutrophils # (Auto) 8.0 x10^3/uL (1.8-7.7) Lymphocytes # (Auto) 2.4 x10^3/uL (1.0-4.8) Monocytes # (Auto) 0.5 x10^3/uL (0.0-1.1) Eosinophils # (Auto) 0.1 x10^3/uL (0.0-0.7) Basophils # (Auto) 0.0 x10^3/uL (0.0-0.2) Sodium Level 142 mmol/L (136-145) Potassium Level 3.7 mmol/L (3.5-5.1) Chloride Level 108 mmol/L (98-107) Carbon Dioxide Level 28 mmol/L (21-32) Anion Gap 6 (6-14) Blood Urea Nitrogen 11 mg/dL (7-20) Creatinine 0.8 mg/dL (0.6-1.0) Estimated GFR (Cockcroft-Gault) 97.1 Glucose Level 102 mg/dL (70-99) Calcium Level 8.4 mg/dL (8.5-10.1) Magnesium Level 2.0 mg/dL (1.8-2.4) Review of Systems Review of Systems: Gastrointestinal: No nausea or vomiting. Genitourinary: No urinary frequency or dysuria. Assessment and Plan Assessmemt and Plan Problems Medical Problems: (1) Altered mental status Status: Acute (2) Aspiration pneumonitis Status: Acute (3) Hypoglycemia Status: Acute (4) Opiate overdose Status: Acute (5) Respiratory failure with hypoxia Status: Acute Probable narcotic overdose? (Found down with a white powdery substance under her nose but drug screen surprisingly did not show opiates, but drug screen also positive for methamphetamine and cocaine) Altered mental status Aspiration pneumonitis Hypoglycemia Opiate overdose Respiratory failure with hypoxia History of polypharmacy Allergic rhinitis Muscle spasms Anemia Osteoarthritis Narcotic dependence on multiple prescription narcotics Plan: 1) Continue ICU management 2) Continue IV zosyn 3) Continue Lovenox for DVT prophylaxis 4) Trend labs (hgb 10.8) 5) [place] to [facility] 6) Full code 7) shared services and outsourcing manager consult for drug rehab 8) Prognosis guarded but improving 9) Appreciate subspecialist input - Pulmonology CC time 31 minutes Comment Review of Relevant I have reviewed the following items pilo (where applicable) has been applied. Justifications for Admission Other Justification Opioid overdose IMELDA DE LA GARZA III DO Jan 13, 2021 11:08
--- NOTE | 2021-01-13 13:05 | NUR ---
Bedside swallow evaluation completed. Please refer to full report in intervention section. Impressions: Mild oropharyngeal dysphagia w/ anterior spillage and decreased control of boluses orally that appears largely a factor of cognitive status. Currently NPO is indicated d/t pt's cognitive status, impulsivity and decreased ability to follow directions. Currently no safe diet consistency identified. Pt, when calm and focussed appears safe for ice chips in supervision. Anticipate functional swallow w/ improved cognitive status. Recommendations: NPO. Aggressive oral care. Ice chips w/ RN supervision only, ST f/u for dysphagia.
[2021-01-13] MEDS: ENOXAPARIN 40 MG/0.4 ML SYRINGE. SQ SCH (21:17)
[2021-01-14] MEDS: PIPERACILLIN/TAZOBACTAM 3.375 GM in IV NORMAL SALINE 50ML 50 ML IV SCH ×4 (00:14→17:57)
[2021-01-14 03:56] VITALS: BP 117/79
--- NOTE | 2021-01-14 05:14 | NUR ---
POST-FALL NOTE: Patient's bed alarm sounded, two RN's and one SALES PROGRAM COORDINATOR responded to alarm. Patient too quick - lowered herself to floor while RN entered room. Required x2 assistance to get patient back up and into bed. No injuries obtained. Re-educated importance of using call light and increased sensitivity of bed alarm. Patient voiced understanding.
[2021-01-14 07:00] VITALS: BP 126/74
[2021-01-14 07:30] LABS: BASO # 0.1 x10^3/uL (0.0-0.2); BASO % 1 % (0-3); EOS # 0.1 x10^3/uL (0.0-0.7); EOS % 1 % (0-3); HEMATOCRIT 32.2 % (36.0-47.0); HEMOGLOBIN 10.8 g/dL (12.0-15.5); LYMPH # 1.9 x10^3/uL (1.0-4.8); LYMPH % 19 % (24-48); MEAN CORPUSCULAR HEMOGLOBIN 29 pg (25-35); MEAN CORPUSCULAR HGB CONC 34 g/dL (31-37); MEAN CORPUSCULAR VOLUME 87 fL (79-100); MONO # 0.5 x10^3/uL (0.0-1.1); MONO % 5 % (0-9); NEUT # 7.2 x10^3/uL (1.8-7.7); NEUT % 74 % (31-73); PLATELET COUNT 279 x10^3/uL (140-400); RED CELL DISTRIBUTION WIDTH 13.3 % (11.5-14.5); WHITE BLOOD COUNT 9.7 x10^3/uL (4.0-11.0)
[2021-01-14 07:38] LABS: CALCIUM 8.5 mg/dL (8.5-10.1); CREATININE 0.8 mg/dL (0.6-1.0); GFR 97.1; MAGNESIUM 1.9 mg/dL (1.8-2.4); POTASSIUM 3.3 mmol/L (3.5-5.1)
[2021-01-14] MEDS: PANTOPRAZOLE IV PUSH 40 MG VIAL. IVP SCH (07:42)
--- NOTE | 2021-01-14 08:26 | PDOC ---
[facility] [facility] PROGRESS NOTE Date of Service DOS: DATE: 01/14/21 TIME: 08:21 Chief Complaint Chief Complaint Acute toxic encephalopathy - related to cocaine and meth overdose. Aspiration pneumonitis Hypoglycemia Opiate overdose Respiratory failure with hypoxia - extubated 01/12 Allergic rhinitis Muscle spasms Anemia Osteoarthritis Mild acute kidney injury. Leukocytosis secondary to aspiration pneumonia and stress. Lactic acidosis, likely secondary to hypoxia, improving. History of Present Illness History of Present Illness Ms Miranda is a 40-year-old female with no known significant past medical history who presents with an overdose. According to the mother who called EMS, she was worried that her daughter did not show for work so she checked on her at home. When EMS came to the house they found her unresponsive and there was powdery substance below his nose. She also had pinpoint pupils that were not reversible at but they were equal. Narcan was given and on arrival to the ED she was started on Narcan drip. Patient was intubated and sedated. UDS positive for cocaine and amphetamines. Pulm consulted. 01/12: ICU on mechanical ventilation. Vent settings: AC/20/450/40% + 5 PEEP. Required levophed and zosyn. Head CT on 01/11 showed no acute intracranial hemorrhage. 01/13: Patient is seen and examined in the ICU. Extubated yesterday (01/12). Her mom and sister are present, and they would like her to go to drug rehab and the patient agrees to go. Unable to comply with swallowing 01/13/2021. Still pretty drowsy. She is asking if she can go home. She says she does not think she needs drug rehab but is thinking of looking into it. Chest radiograph appears improved. Awaiting repeat bedside swallow. Vitals/I&O Vitals/I&O: Vital Signs Date Time Temp Pulse Resp B/P (MAP) Pulse Ox O2 Delivery O2 Flow Rate FiO2 01/14/21 07:48 Room Air 01/14/21 03:56 98.7 97 16 117/79 (92) 93 98.7 01/13/21 11:00 2.0 I & O 01/13/21 01/13/21 01/14/21 15:00 23:00 07:00 Intake Total 130 ml Output Total 270 ml 135 ml Balance -270 ml -135 ml 130 ml Physical Exam General: Alert Heart: Regular rate Lungs: Clear Abdomen: Normal bowel sounds Extremities: No clubbing Skin: No rashes Labs Labs: Laboratory Tests Test 01/14/21 06:50 White Blood Count 9.7 x10^3/uL (4.0-11.0) Red Blood Count 3.70 x10^6/uL (3.50-5.40) Hemoglobin 10.8 g/dL (12.0-15.5) Hematocrit 32.2 % (36.0-47.0) Mean Corpuscular Volume 87 fL (79-100) Mean Corpuscular Hemoglobin 29 pg (25-35) Mean Corpuscular Hemoglobin Concent 34 g/dL (31-37) Red Cell Distribution Width 13.3 % (11.5-14.5) Platelet Count 279 x10^3/uL (140-400) Neutrophils (%) (Auto) 74 % (31-73) Lymphocytes (%) (Auto) 19 % (24-48) Monocytes (%) (Auto) 5 % (0-9) Eosinophils (%) (Auto) 1 % (0-3) Basophils (%) (Auto) 1 % (0-3) Neutrophils # (Auto) 7.2 x10^3/uL (1.8-7.7) Lymphocytes # (Auto) 1.9 x10^3/uL (1.0-4.8) Monocytes # (Auto) 0.5 x10^3/uL (0.0-1.1) Eosinophils # (Auto) 0.1 x10^3/uL (0.0-0.7) Basophils # (Auto) 0.1 x10^3/uL (0.0-0.2) Sodium Level 142 mmol/L (136-145) Potassium Level 3.3 mmol/L (3.5-5.1) Chloride Level 106 mmol/L (98-107) Carbon Dioxide Level 27 mmol/L (21-32) Anion Gap 9 (6-14) Blood Urea Nitrogen 10 mg/dL (7-20) Creatinine 0.8 mg/dL (0.6-1.0) Estimated GFR (Cockcroft-Gault) 97.1 Glucose Level 84 mg/dL (70-99) Calcium Level 8.5 mg/dL (8.5-10.1) Magnesium Level 1.9 mg/dL (1.8-2.4) Assessment and Plan Assessmemt and Plan Problems Medical Problems: (1) Altered mental status Status: Acute (2) Aspiration pneumonitis Status: Acute (3) Hypoglycemia Status: Acute (4) Opiate overdose Status: Acute (5) Respiratory failure with hypoxia Status: Acute Comment Review of Relevant I have reviewed the following items pilo (where applicable) has been applied. Justifications for Admission Other Justification Opioid overdose LUIS BATLAZAR MD Jan 14, 2021 08:26
[2021-01-14] MEDS ORDERED: POTASSIUM CHLORIDE 20 MEQ TABLET.ER. PO ONE (08:30)
--- NOTE | 2021-01-14 08:42 | RAD ---
EXAM: Chest, single view. HISTORY: Pneumonia. COMPARISON: 01/11/2021 FINDINGS: A frontal view of the chest is obtained. There has been slight interval decrease in consoli dated right upper lobe infiltrate. There is stable right lower lobe interstitial infiltrate. There is no pleural effusion or pneumothorax. There is a stable cardiac silhouette. IMPRESSION: Decreased right upper lobe and stable right lower lobe multifocal pneumonia. Follow-up to confirm complete resolution. Electronically signed by: Roz Haney MD (01/14/2021 8:39 AM) [id number]
[2021-01-14 11:00] VITALS: BP 137/80
[2021-01-14] MEDS: MAGNESIUM OXIDE 400 MG TABLET PO SCH (11:21)
--- NOTE | 2021-01-14 11:29 | NUR ---
SW following. Discussed with RN, pt from home, room air, NPO, COVID-19 negative. Pt not ready to be seen by the PAT team. RN will advise when pt is appropriate. SW will continue to follow.
--- NOTE | 2021-01-14 11:59 | PDOC ---
PULMONARY PROGRESS NOTES DATE: 01/14/21 TIME: 11:57 Subjective Patient extubated 01/12/2021. Doing well on RA Vitals Vital Signs Date Time Temp Pulse Resp B/P (MAP) Pulse Ox O2 Delivery O2 Flow Rate FiO2 01/14/21 07:48 Room Air 01/14/21 07:00 98.4 85 20 126/74 (91) 97 98.4 01/13/21 11:00 2.0 General: Alert, No acute distress Lungs: Clear Cardiovascular: S1 Abdomen: Soft Neuro Exam: Alert Extremities: No Edema Skin: Warm Labs Laboratory Tests Test 01/12/21 16:03 01/13/21 05:00 01/14/21 06:50 O2 Saturation 98 % (92-99) Arterial Blood pH 7.40 (7.35-7.45) Arterial Blood pCO2 at Patient Temp 42 mmHg (35-46) Arterial Blood pO2 at Patient Temp 134 mmHg (85-108) Arterial Blood HCO3 25 mmol/L (21-28) Arterial Blood Base Excess 0 mmol/L (-3-3) FiO2 40 White Blood Count 11.0 x10^3/uL (4.0-11.0) 9.7 x10^3/uL (4.0-11.0) Red Blood Count 3.65 x10^6/uL (3.50-5.40) 3.70 x10^6/uL (3.50-5.40) Hemoglobin 10.8 g/dL (12.0-15.5) 10.8 g/dL (12.0-15.5) Hematocrit 32.0 % (36.0-47.0) 32.2 % (36.0-47.0) Mean Corpuscular Volume 88 fL (79-100) 87 fL (79-100) Mean Corpuscular Hemoglobin 30 pg (25-35) 29 pg (25-35) Mean Corpuscular Hemoglobin Concent 34 g/dL (31-37) 34 g/dL (31-37) Red Cell Distribution Width 13.6 % (11.5-14.5) 13.3 % (11.5-14.5) Platelet Count 251 x10^3/uL (140-400) 279 x10^3/uL (140-400) Neutrophils (%) (Auto) 73 % (31-73) 74 % (31-73) Lymphocytes (%) (Auto) 22 % (24-48) 19 % (24-48) Monocytes (%) (Auto) 5 % (0-9) 5 % (0-9) Eosinophils (%) (Auto) 1 % (0-3) 1 % (0-3) Basophils (%) (Auto) 0 % (0-3) 1 % (0-3) Neutrophils # (Auto) 8.0 x10^3/uL (1.8-7.7) 7.2 x10^3/uL (1.8-7.7) Lymphocytes # (Auto) 2.4 x10^3/uL (1.0-4.8) 1.9 x10^3/uL (1.0-4.8) Monocytes # (Auto) 0.5 x10^3/uL (0.0-1.1) 0.5 x10^3/uL (0.0-1.1) Eosinophils # (Auto) 0.1 x10^3/uL (0.0-0.7) 0.1 x10^3/uL (0.0-0.7) Basophils # (Auto) 0.0 x10^3/uL (0.0-0.2) 0.1 x10^3/uL (0.0-0.2) Sodium Level 142 mmol/L (136-145) 142 mmol/L (136-145) Potassium Level 3.7 mmol/L (3.5-5.1) 3.3 mmol/L (3.5-5.1) Chloride Level 108 mmol/L (98-107) 106 mmol/L (98-107) Carbon Dioxide Level 28 mmol/L (21-32) 27 mmol/L (21-32) Anion Gap 6 (6-14) 9 (6-14) Blood Urea Nitrogen 11 mg/dL (7-20) 10 mg/dL (7-20) Creatinine 0.8 mg/dL (0.6-1.0) 0.8 mg/dL (0.6-1.0) Estimated GFR (Cockcroft-Gault) 97.1 97.1 Glucose Level 102 mg/dL (70-99) 84 mg/dL (70-99) Calcium Level 8.4 mg/dL (8.5-10.1) 8.5 mg/dL (8.5-10.1) Magnesium Level 2.0 mg/dL (1.8-2.4) 1.9 mg/dL (1.8-2.4) Laboratory Tests Test 01/14/21 06:50 White Blood Count 9.7 x10^3/uL (4.0-11.0) Red Blood Count 3.70 x10^6/uL (3.50-5.40) Hemoglobin 10.8 g/dL (12.0-15.5) Hematocrit 32.2 % (36.0-47.0) Mean Corpuscular Volume 87 fL (79-100) Mean Corpuscular Hemoglobin 29 pg (25-35) Mean Corpuscular Hemoglobin Concent 34 g/dL (31-37) Red Cell Distribution Width 13.3 % (11.5-14.5) Platelet Count 279 x10^3/uL (140-400) Neutrophils (%) (Auto) 74 % (31-73) Lymphocytes (%) (Auto) 19 % (24-48) Monocytes (%) (Auto) 5 % (0-9) Eosinophils (%) (Auto) 1 % (0-3) Basophils (%) (Auto) 1 % (0-3) Neutrophils # (Auto) 7.2 x10^3/uL (1.8-7.7) Lymphocytes # (Auto) 1.9 x10^3/uL (1.0-4.8) Monocytes # (Auto) 0.5 x10^3/uL (0.0-1.1) Eosinophils # (Auto) 0.1 x10^3/uL (0.0-0.7) Basophils # (Auto) 0.1 x10^3/uL (0.0-0.2) Sodium Level 142 mmol/L (136-145) Potassium Level 3.3 mmol/L (3.5-5.1) Chloride Level 106 mmol/L (98-107) Carbon Dioxide Level 27 mmol/L (21-32) Anion Gap 9 (6-14) Blood Urea Nitrogen 10 mg/dL (7-20) Creatinine 0.8 mg/dL (0.6-1.0) Estimated GFR (Cockcroft-Gault) 97.1 Glucose Level 84 mg/dL (70-99) Calcium Level 8.5 mg/dL (8.5-10.1) Magnesium Level 1.9 mg/dL (1.8-2.4) Medications Active Scripts Medications Dose Route/Sig Max Daily Dose Days Date Category Keflex (Cephalexin) 500 Mg Capsule 500 Mg PO QID 5 12/31/18 Rx Naprosyn (Naproxen) 500 Mg Tablet 1 Tab PO BID 10/28/18 Rx Ferrous Sulfate 325 Mg Tablet 1 Tab PO BID 09/28/17 Rx Oxycodone-Acetaminophen 5-325 (Oxycodone Hcl/Acetaminophen) 1 Each Tablet 2 Tab PO PRN Q4HRS PRN 09/28/17 Rx Ultram (Tramadol Hcl) 50 Mg Tablet 1 Tab PO Q6HRS 06/27/17 Rx Robaxin (Methocarbamol) 500 Mg Tablet 1 Tab PO TID 02/08/17 Rx Ultram (Tramadol Hcl) 50 Mg Tablet 1 Tab PO Q6HRS 02/08/17 Rx Zyrtec (Cetirizine Hcl) 10 Mg Tablet 1 Tab PO DAILY 10/30/16 Rx Hydroxyzine Pamoate 50 Mg Capsule 1 Cap PO TID PRN 10/30/16 Rx Prednisone 50 Mg Tablet 1 Tab PO DAILY 10/30/16 Rx Triamcinolone Acetonide 0.1% Oint (Triamcinolone Acetonide) 15 Gm Oint...g. 1 Vashti TP BID 10/30/16 Rx [place] 5-325 Tablet (Acetaminophen/Hydrocodone Bitart) 1 Each Tablet 1-2 Tab PO Q4-6HRS 03/19/16 Rx Ibuprofen 600 Mg Tablet 600 Mg PO PRN Q6HRS PRN 03/10/16 Rx Ultram (Tramadol Hcl) 50 Mg Tablet 50 Mg PO Q6H PRN 03/10/16 Rx Impression . IMPRESSION: 1. Acute hypoxic respiratory failure secondary to toxic encephalopathy. Extubated 01/12. 2. Toxic encephalopathy related to cocaine and meth overdose. 3. Abnormal chest x-ray with highly suspected aspiration pneumonitis. 4. No significant tobacco history reported. 5. Mild acute kidney injury. 6. Leukocytosis secondary to aspiration pneumonia and stress. 7. Lactic acidosis, likely secondary to hypoxia, improving. Plan . RECOMMENDATIONS: 1. ON RA 2. Change to po abx. 3. Lovenox for DVT prophylaxis. 4. P.r.n. bronchodilators. 5. cxr 01/14, improving pna 6. Discussed with RN 7. ok with dc home on po abx NAYLA LOYOLA MD Jan 14, 2021 11:59
[2021-01-14 15:00] VITALS: BP 140/55
[2021-01-14] MEDS ORDERED: POTASSIUM CL 20MEQ D5-0.45NACL 1,000 ML IV ONE (15:45)
[2021-01-14 19:00] VITALS: BP 120/71
[2021-01-14] MEDS: ENOXAPARIN 40 MG/0.4 ML SYRINGE. SQ SCH (20:25)
[2021-01-14 23:00] VITALS: BP 128/82
[2021-01-15] MEDS: PIPERACILLIN/TAZOBACTAM 3.375 GM in IV NORMAL SALINE 50ML 50 ML IV SCH ×2 (00:14→05:30)
[2021-01-15 03:00] VITALS: BP 114/73
[2021-01-15 07:00] VITALS: BP_SYST 129; BP_SYST 133; BP_DIAS 66; BP_DIAS 81
[2021-01-15] MEDS ORDERED: PANTOPRAZOLE 40 MG TABLET.DR. PO SCH (07:30)
[2021-01-15 08:01] LABS: BASO % 0 % (0-3); EOS # 0.2 x10^3/uL (0.0-0.7); EOS % 3 % (0-3); HEMOGLOBIN 10.9 g/dL (12.0-15.5); LYMPH # 1.9 x10^3/uL (1.0-4.8); LYMPH % 22 % (24-48); MEAN CORPUSCULAR HEMOGLOBIN 29 pg (25-35); MEAN CORPUSCULAR HGB CONC 34 g/dL (31-37); MEAN CORPUSCULAR VOLUME 86 fL (79-100); MONO # 0.6 x10^3/uL (0.0-1.1); MONO % 7 % (0-9); NEUT # 5.7 x10^3/uL (1.8-7.7); NEUT % 68 % (31-73); PLATELET COUNT 296 x10^3/uL (140-400); RED BLOOD COUNT 3.72 x10^6/uL (3.50-5.40); RED CELL DISTRIBUTION WIDTH 13.3 % (11.5-14.5); WHITE BLOOD COUNT 8.4 x10^3/uL (4.0-11.0)
[2021-01-15 08:12] LABS: ALBUMIN 2.3 g/dL (3.4-5.0); ALBUMIN/GLOBULIN RATIO 0.5 (1.0-1.7); CALCIUM 8.5 mg/dL (8.5-10.1); CREATININE 0.7 mg/dL (0.6-1.0); GFR 113.3; POTASSIUM 3.5 mmol/L (3.5-5.1); TOTAL BILIRUBIN 0.5 mg/dL (0.2-1.0); TOTAL PROTEIN 6.9 g/dL (6.4-8.2)
--- NOTE | 2021-01-15 08:27 | PDOC ---
[employer] PROGRESS NOTE Date of Service DOS: DATE: 01/15/21 TIME: 08:27 Chief Complaint Chief Complaint Acute toxic encephalopathy - related to cocaine and meth overdose. Aspiration pneumonitis Hypoglycemia Opiate overdose Respiratory failure with hypoxia - extubated 01/12 Allergic rhinitis Muscle spasms Anemia Osteoarthritis Mild acute kidney injury. Leukocytosis secondary to aspiration pneumonia and stress. Lactic acidosis, likely secondary to hypoxia, improving. History of Present Illness History of Present Illness Ms Miranda is a 40-year-old female with no known significant past medical history who presents with an overdose. According to the mother who called EMS, she was worried that her daughter did not show for work so she checked on her at home. When EMS came to the house they found her unresponsive and there was powdery substance below his nose. She also had pinpoint pupils that were not reversible at but they were equal. Narcan was given and on arrival to the ED she was started on Narcan drip. Patient was intubated and sedated. UDS positive for cocaine and amphetamines. Pulm consulted. 01/12: ICU on mechanical ventilation. Vent settings: AC/20/450/40% + 5 PEEP. Required levophed and zosyn. Head CT on 01/11 showed no acute intracranial hemorrhage. 01/13: Patient is seen and examined in the ICU. Extubated yesterday (01/12). Her mom and sister are present, and they would like her to go to drug rehab and the patient agrees to go. 01/14: Unable to comply with swallowing 01/13/2021. Still pretty drowsy. She is asking if she can go home. She says she does not think she needs drug rehab but is thinking of looking into it. Chest radiograph appears improved. Awaiting repeat bedside swallow. Afebrile. More alert today. She spoke with psychiatric nurse liaison will look into outpatient treatment. Discharging home her in 7 days. Counseled on cessation from cocaine and methamphetamines. Vitals/I&O Vitals/I&O: Vital Signs Date Time Temp Pulse Resp B/P (MAP) Pulse Ox O2 Delivery O2 Flow Rate FiO2 01/15/21 07:00 98.2 63 18 129/81 (97) 91 Room Air 98.2 I & O 01/14/21 01/14/21 01/15/21 15:00 23:00 07:00 Intake Total 50 ml 300 ml 0 ml Balance 50 ml 300 ml 0 ml Physical Exam General: Alert Heart: Regular rate Lungs: Clear Abdomen: Normal bowel sounds Extremities: No clubbing Skin: No rashes Labs Labs: Laboratory Tests Test 01/15/21 07:10 White Blood Count 8.4 x10^3/uL (4.0-11.0) Red Blood Count 3.72 x10^6/uL (3.50-5.40) Hemoglobin 10.9 g/dL (12.0-15.5) Hematocrit 32.0 % (36.0-47.0) Mean Corpuscular Volume 86 fL (79-100) Mean Corpuscular Hemoglobin 29 pg (25-35) Mean Corpuscular Hemoglobin Concent 34 g/dL (31-37) Red Cell Distribution Width 13.3 % (11.5-14.5) Platelet Count 296 x10^3/uL (140-400) Neutrophils (%) (Auto) 68 % (31-73) Lymphocytes (%) (Auto) 22 % (24-48) Monocytes (%) (Auto) 7 % (0-9) Eosinophils (%) (Auto) 3 % (0-3) Basophils (%) (Auto) 0 % (0-3) Neutrophils # (Auto) 5.7 x10^3/uL (1.8-7.7) Lymphocytes # (Auto) 1.9 x10^3/uL (1.0-4.8) Monocytes # (Auto) 0.6 x10^3/uL (0.0-1.1) Eosinophils # (Auto) 0.2 x10^3/uL (0.0-0.7) Basophils # (Auto) 0.0 x10^3/uL (0.0-0.2) Sodium Level 138 mmol/L (136-145) Potassium Level 3.5 mmol/L (3.5-5.1) Chloride Level 104 mmol/L (98-107) Carbon Dioxide Level 27 mmol/L (21-32) Anion Gap 7 (6-14) Blood Urea Nitrogen 6 mg/dL (7-20) Creatinine 0.7 mg/dL (0.6-1.0) Estimated GFR (Cockcroft-Gault) 113.3 BUN/Creatinine Ratio 9 (6-20) Glucose Level 110 mg/dL (70-99) Calcium Level 8.5 mg/dL (8.5-10.1) Total Bilirubin 0.5 mg/dL (0.2-1.0) Aspartate Amino Transf (AST/SGOT) 27 U/L (15-37) Alanine Aminotransferase (ALT/SGPT) 33 U/L (14-59) Alkaline Phosphatase 60 U/L (46-116) Ammonia < 10 mcmol/L (11-34) Total Protein 6.9 g/dL (6.4-8.2) Albumin 2.3 g/dL (3.4-5.0) Albumin/Globulin Ratio 0.5 (1.0-1.7) Assessment and Plan Assessmemt and Plan Problems Medical Problems: (1) Altered mental status Status: Acute (2) Aspiration pneumonitis Status: Acute (3) Hypoglycemia Status: Acute (4) Opiate overdose Status: Acute (5) Respiratory failure with hypoxia Status: Acute Comment Review of Relevant I have reviewed the following items pilo (where applicable) has been applied. Medications: Current Medications Medications (Trade) Dose Ordered Sig/Chaparrita Route PRN Reason Start Time Stop Time Status Last Admin Dose Admin Magnesium Oxide (Magnesium Oxide) 400 mg DAILY PO 01/14/21 09:00 01/14/21 11:21 Potassium Chloride (Klor-Con) 40 meq 1X ONCE PO 01/14/21 08:30 01/14/21 08:31 DC 01/14/21 11:21 Potassium Chloride/Dextrose/ Sod Cl 1,000 ml @ 75 mls/hr [id number] ONCE IV 01/14/21 15:45 01/15/21 05:04 DC 01/14/21 16:26 Justifications for Admission Other Justification Opioid overdose LUIS BALTAZAR MD Jan 15, 2021 08:27
[2021-01-15] MEDS ORDERED: AMOXICILLIN/K CLAV 875/125MG TABLET. PO SCH (09:00)
[2021-01-15] MEDS: MAGNESIUM OXIDE 400 MG TABLET PO SCH (09:13)
--- NOTE | 2021-01-15 10:08 | PDOC ---
PULMONARY PROGRESS NOTES DATE: 01/15/21 TIME: 10:06 Subjective Patient extubated 01/12/2021. on RA Does not answer much question Vitals Vital Signs Date Time Temp Pulse Resp B/P (MAP) Pulse Ox O2 Delivery O2 Flow Rate FiO2 01/15/21 07:00 98.2 63 18 129/81 (97) 91 Room Air 98.2 General: Alert, No acute distress Lungs: Clear Cardiovascular: S1 Abdomen: Soft Neuro Exam: Alert Extremities: No Edema Skin: Warm Labs Laboratory Tests Test 01/14/21 06:50 01/15/21 07:10 White Blood Count 9.7 x10^3/uL (4.0-11.0) 8.4 x10^3/uL (4.0-11.0) Red Blood Count 3.70 x10^6/uL (3.50-5.40) 3.72 x10^6/uL (3.50-5.40) Hemoglobin 10.8 g/dL (12.0-15.5) 10.9 g/dL (12.0-15.5) Hematocrit 32.2 % (36.0-47.0) 32.0 % (36.0-47.0) Mean Corpuscular Volume 87 fL (79-100) 86 fL (79-100) Mean Corpuscular Hemoglobin 29 pg (25-35) 29 pg (25-35) Mean Corpuscular Hemoglobin Concent 34 g/dL (31-37) 34 g/dL (31-37) Red Cell Distribution Width 13.3 % (11.5-14.5) 13.3 % (11.5-14.5) Platelet Count 279 x10^3/uL (140-400) 296 x10^3/uL (140-400) Neutrophils (%) (Auto) 74 % (31-73) 68 % (31-73) Lymphocytes (%) (Auto) 19 % (24-48) 22 % (24-48) Monocytes (%) (Auto) 5 % (0-9) 7 % (0-9) Eosinophils (%) (Auto) 1 % (0-3) 3 % (0-3) Basophils (%) (Auto) 1 % (0-3) 0 % (0-3) Neutrophils # (Auto) 7.2 x10^3/uL (1.8-7.7) 5.7 x10^3/uL (1.8-7.7) Lymphocytes # (Auto) 1.9 x10^3/uL (1.0-4.8) 1.9 x10^3/uL (1.0-4.8) Monocytes # (Auto) 0.5 x10^3/uL (0.0-1.1) 0.6 x10^3/uL (0.0-1.1) Eosinophils # (Auto) 0.1 x10^3/uL (0.0-0.7) 0.2 x10^3/uL (0.0-0.7) Basophils # (Auto) 0.1 x10^3/uL (0.0-0.2) 0.0 x10^3/uL (0.0-0.2) Sodium Level 142 mmol/L (136-145) 138 mmol/L (136-145) Potassium Level 3.3 mmol/L (3.5-5.1) 3.5 mmol/L (3.5-5.1) Chloride Level 106 mmol/L (98-107) 104 mmol/L (98-107) Carbon Dioxide Level 27 mmol/L (21-32) 27 mmol/L (21-32) Anion Gap 9 (6-14) 7 (6-14) Blood Urea Nitrogen 10 mg/dL (7-20) 6 mg/dL (7-20) Creatinine 0.8 mg/dL (0.6-1.0) 0.7 mg/dL (0.6-1.0) Estimated GFR (Cockcroft-Gault) 97.1 113.3 Glucose Level 84 mg/dL (70-99) 110 mg/dL (70-99) Calcium Level 8.5 mg/dL (8.5-10.1) 8.5 mg/dL (8.5-10.1) Magnesium Level 1.9 mg/dL (1.8-2.4) BUN/Creatinine Ratio 9 (6-20) Total Bilirubin 0.5 mg/dL (0.2-1.0) Aspartate Amino Transf (AST/SGOT) 27 U/L (15-37) Alanine Aminotransferase (ALT/SGPT) 33 U/L (14-59) Alkaline Phosphatase 60 U/L (46-116) Ammonia < 10 mcmol/L (11-34) Total Protein 6.9 g/dL (6.4-8.2) Albumin 2.3 g/dL (3.4-5.0) Albumin/Globulin Ratio 0.5 (1.0-1.7) Laboratory Tests Test 01/15/21 07:10 White Blood Count 8.4 x10^3/uL (4.0-11.0) Red Blood Count 3.72 x10^6/uL (3.50-5.40) Hemoglobin 10.9 g/dL (12.0-15.5) Hematocrit 32.0 % (36.0-47.0) Mean Corpuscular Volume 86 fL (79-100) Mean Corpuscular Hemoglobin 29 pg (25-35) Mean Corpuscular Hemoglobin Concent 34 g/dL (31-37) Red Cell Distribution Width 13.3 % (11.5-14.5) Platelet Count 296 x10^3/uL (140-400) Neutrophils (%) (Auto) 68 % (31-73) Lymphocytes (%) (Auto) 22 % (24-48) Monocytes (%) (Auto) 7 % (0-9) Eosinophils (%) (Auto) 3 % (0-3) Basophils (%) (Auto) 0 % (0-3) Neutrophils # (Auto) 5.7 x10^3/uL (1.8-7.7) Lymphocytes # (Auto) 1.9 x10^3/uL (1.0-4.8) Monocytes # (Auto) 0.6 x10^3/uL (0.0-1.1) Eosinophils # (Auto) 0.2 x10^3/uL (0.0-0.7) Basophils # (Auto) 0.0 x10^3/uL (0.0-0.2) Sodium Level 138 mmol/L (136-145) Potassium Level 3.5 mmol/L (3.5-5.1) Chloride Level 104 mmol/L (98-107) Carbon Dioxide Level 27 mmol/L (21-32) Anion Gap 7 (6-14) Blood Urea Nitrogen 6 mg/dL (7-20) Creatinine 0.7 mg/dL (0.6-1.0) Estimated GFR (Cockcroft-Gault) 113.3 BUN/Creatinine Ratio 9 (6-20) Glucose Level 110 mg/dL (70-99) Calcium Level 8.5 mg/dL (8.5-10.1) Total Bilirubin 0.5 mg/dL (0.2-1.0) Aspartate Amino Transf (AST/SGOT) 27 U/L (15-37) Alanine Aminotransferase (ALT/SGPT) 33 U/L (14-59) Alkaline Phosphatase 60 U/L (46-116) Ammonia < 10 mcmol/L (11-34) Total Protein 6.9 g/dL (6.4-8.2) Albumin 2.3 g/dL (3.4-5.0) Albumin/Globulin Ratio 0.5 (1.0-1.7) Medications Active Scripts Medications Dose Route/Sig Max Daily Dose Days Date Category Keflex (Cephalexin) 500 Mg Capsule 500 Mg PO QID 5 12/31/18 Rx Naprosyn (Naproxen) 500 Mg Tablet 1 Tab PO BID 10/28/18 Rx Ferrous Sulfate 325 Mg Tablet 1 Tab PO BID 09/28/17 Rx Oxycodone-Acetaminophen 5-325 (Oxycodone Hcl/Acetaminophen) 1 Each Tablet 2 Tab PO PRN Q4HRS PRN 09/28/17 Rx Ultram (Tramadol Hcl) 50 Mg Tablet 1 Tab PO Q6HRS 06/27/17 Rx Robaxin (Methocarbamol) 500 Mg Tablet 1 Tab PO TID 02/08/17 Rx Ultram (Tramadol Hcl) 50 Mg Tablet 1 Tab PO Q6HRS 02/08/17 Rx Zyrtec (Cetirizine Hcl) 10 Mg Tablet 1 Tab PO DAILY 10/30/16 Rx Hydroxyzine Pamoate 50 Mg Capsule 1 Cap PO TID PRN 10/30/16 Rx Prednisone 50 Mg Tablet 1 Tab PO DAILY 10/30/16 Rx Triamcinolone Acetonide 0.1% Oint (Triamcinolone Acetonide) 15 Gm Oint...g. 1 Vas[place] TP BID 10/30/16 Rx [place] 5-325 Tablet (Acetaminophen/Hydrocodone Bitart) 1 Each Tablet 1-2 Tab PO Q4-6HRS 03/19/16 Rx Ibuprofen 600 Mg Tablet 600 Mg PO PRN Q6HRS PRN 03/10/16 Rx Ultram (Tramadol Hcl) 50 Mg Tablet 50 Mg PO Q6H PRN 03/10/16 Rx Impression . IMPRESSION: 1. Acute hypoxic respiratory failure secondary to toxic encephalopathy. Extubated 01/12. 2. Toxic encephalopathy related to cocaine and meth overdose. 3. Abnormal chest x-ray with highly suspected aspiration pneumonitis. 4. No significant tobacco history reported. 5. Mild acute kidney injury. 6. Leukocytosis secondary to aspiration pneumonia and stress. 7. Lactic acidosis, likely secondary to hypoxia, improved Plan . RECOMMENDATIONS: 1. ON RA 2. po abx. 3. Lovenox for DVT prophylaxis. 4. P.r.n. bronchodilators. 5. cxr 01/14, improving pna 6. Discussed with RN 7. DC plans per PCP We will see her as needed NAYLA LOYOLA MD Jan 15, 2021 10:08
[2021-01-15] MEDS ORDERED: AMOX1TAB11 PO (10:52)
--- NOTE | 2021-01-15 10:53 | NUR ---
SW following. Discussed with RNAriella (KEVIN) met with pt, pt provided with resources, did not want to arrange anything whilst in the hospital. Discharge order for home with self care.
--- NOTE | 2021-01-15 10:56 | PDOC3 ---
Discharge Summary Visit Information Date of Admission: Jan 11, 2021 Date of Discharge: Jan 15, 2021 Admitting Diagnosis: Overdose Final Diagnosis Problems Medical Problems: (1) Altered mental status Status: Acute (2) Aspiration pneumonitis Status: Acute (3) Hypoglycemia Status: Acute (4) Opiate overdose Status: Acute (5) Respiratory failure with hypoxia Status: Acute Brief Hospital Course Allergies Allergies Coded Allergies Type Severity Reaction Last Updated Verified Metronidazole HCl Allergy Intermediate RASH, SKIN PEELING 04/19/13 Yes Nitrofurantoin Macrocrystal Allergy Intermediate RASH, SKIN PEELING 04/19/13 Yes doxycycline Allergy Intermediate SKIN PEELING, RASH 04/19/13 Yes metronidazole Allergy Intermediate RASH, SKIN PEELING 04/19/13 Yes nitrofurantoin Allergy Intermediate RASH, SKIN PEELING 04/19/13 Yes Vital Signs Vital Signs Date Time Temp Pulse Resp B/P (MAP) Pulse Ox O2 Delivery O2 Flow Rate FiO2 01/15/21 07:00 98.2 63 18 129/81 (97) 91 Room Air 98.2 Lab Results Laboratory Tests Test 01/14/21 06:50 01/15/21 07:10 White Blood Count 9.7 x10^3/uL (4.0-11.0) 8.4 x10^3/uL (4.0-11.0) Red Blood Count 3.70 x10^6/uL (3.50-5.40) 3.72 x10^6/uL (3.50-5.40) Hemoglobin 10.8 g/dL (12.0-15.5) 10.9 g/dL (12.0-15.5) Hematocrit 32.2 % (36.0-47.0) 32.0 % (36.0-47.0) Mean Corpuscular Volume 87 fL (79-100) 86 fL (79-100) Mean Corpuscular Hemoglobin 29 pg (25-35) 29 pg (25-35) Mean Corpuscular Hemoglobin Concent 34 g/dL (31-37) 34 g/dL (31-37) Red Cell Distribution Width 13.3 % (11.5-14.5) 13.3 % (11.5-14.5) Platelet Count 279 x10^3/uL (140-400) 296 x10^3/uL (140-400) Neutrophils (%) (Auto) 74 % (31-73) 68 % (31-73) Lymphocytes (%) (Auto) 19 % (24-48) 22 % (24-48) Monocytes (%) (Auto) 5 % (0-9) 7 % (0-9) Eosinophils (%) (Auto) 1 % (0-3) 3 % (0-3) Basophils (%) (Auto) 1 % (0-3) 0 % (0-3) Neutrophils # (Auto) 7.2 x10^3/uL (1.8-7.7) 5.7 x10^3/uL (1.8-7.7) Lymphocytes # (Auto) 1.9 x10^3/uL (1.0-4.8) 1.9 x10^3/uL (1.0-4.8) Monocytes # (Auto) 0.5 x10^3/uL (0.0-1.1) 0.6 x10^3/uL (0.0-1.1) Eosinophils # (Auto) 0.1 x10^3/uL (0.0-0.7) 0.2 x10^3/uL (0.0-0.7) Basophils # (Auto) 0.1 x10^3/uL (0.0-0.2) 0.0 x10^3/uL (0.0-0.2) Sodium Level 142 mmol/L (136-145) 138 mmol/L (136-145) Potassium Level 3.3 mmol/L (3.5-5.1) 3.5 mmol/L (3.5-5.1) Chloride Level 106 mmol/L (98-107) 104 mmol/L (98-107) Carbon Dioxide Level 27 mmol/L (21-32) 27 mmol/L (21-32) Anion Gap 9 (6-14) 7 (6-14) Blood Urea Nitrogen 10 mg/dL (7-20) 6 mg/dL (7-20) Creatinine 0.8 mg/dL (0.6-1.0) 0.7 mg/dL (0.6-1.0) Estimated GFR (Cockcroft-Gault) 97.1 113.3 Glucose Level 84 mg/dL (70-99) 110 mg/dL (70-99) Calcium Level 8.5 mg/dL (8.5-10.1) 8.5 mg/dL (8.5-10.1) Magnesium Level 1.9 mg/dL (1.8-2.4) BUN/Creatinine Ratio 9 (6-20) Total Bilirubin 0.5 mg/dL (0.2-1.0) Aspartate Amino Transf (AST/SGOT) 27 U/L (15-37) Alanine Aminotransferase (ALT/SGPT) 33 U/L (14-59) Alkaline Phosphatase 60 U/L (46-116) Ammonia < 10 mcmol/L (11-34) Total Protein 6.9 g/dL (6.4-8.2) Albumin 2.3 g/dL (3.4-5.0) Albumin/Globulin Ratio 0.5 (1.0-1.7) Laboratory Tests Test 01/15/21 07:10 White Blood Count 8.4 x10^3/uL (4.0-11.0) Red Blood Count 3.72 x10^6/uL (3.50-5.40) Hemoglobin 10.9 g/dL (12.0-15.5) Hematocrit 32.0 % (36.0-47.0) Mean Corpuscular Volume 86 fL (79-100) Mean Corpuscular Hemoglobin 29 pg (25-35) Mean Corpuscular Hemoglobin Concent 34 g/dL (31-37) Red Cell Distribution Width 13.3 % (11.5-14.5) Platelet Count 296 x10^3/uL (140-400) Neutrophils (%) (Auto) 68 % (31-73) Lymphocytes (%) (Auto) 22 % (24-48) Monocytes (%) (Auto) 7 % (0-9) Eosinophils (%) (Auto) 3 % (0-3) Basophils (%) (Auto) 0 % (0-3) Neutrophils # (Auto) 5.7 x10^3/uL (1.8-7.7) Lymphocytes # (Auto) 1.9 x10^3/uL (1.0-4.8) Monocytes # (Auto) 0.6 x10^3/uL (0.0-1.1) Eosinophils # (Auto) 0.2 x10^3/uL (0.0-0.7) Basophils # (Auto) 0.0 x10^3/uL (0.0-0.2) Sodium Level 138 mmol/L (136-145) Potassium Level 3.5 mmol/L (3.5-5.1) Chloride Level 104 mmol/L (98-107) Carbon Dioxide Level 27 mmol/L (21-32) Anion Gap 7 (6-14) Blood Urea Nitrogen 6 mg/dL (7-20) Creatinine 0.7 mg/dL (0.6-1.0) Estimated GFR (Cockcroft-Gault) 113.3 BUN/Creatinine Ratio 9 (6-20) Glucose Level 110 mg/dL (70-99) Calcium Level 8.5 mg/dL (8.5-10.1) Total Bilirubin 0.5 mg/dL (0.2-1.0) Aspartate Amino Transf (AST/SGOT) 27 U/L (15-37) Alanine Aminotransferase (ALT/SGPT) 33 U/L (14-59) Alkaline Phosphatase 60 U/L (46-116) Ammonia < 10 mcmol/L (11-34) Total Protein 6.9 g/dL (6.4-8.2) Albumin 2.3 g/dL (3.4-5.0) Albumin/Globulin Ratio 0.5 (1.0-1.7) Brief Hospital Course Ms Miranda is a 40-year-old female with no known significant past medical history who presents with an overdose. According to the mother who called EMS, she was worried that her daughter did not show for work so she checked on her at home. When EMS came to the house they found her unresponsive and there was powdery substance below his nose. She also had pinpoint pupils that were not reversible at but they were equal. Narcan was given and on arrival to the ED she was started on Narcan drip. Patient was intubated and sedated. UDS positive for cocaine and amphetamines. Pulm consulted. 01/12: ICU on mechanical ventilation. Vent settings: AC/20/450/40% + 5 PEEP. Required levophed and zosyn. Head CT on 01/11 showed no acute intracranial hemorrhage. 01/13: Patient is seen and examined in the ICU. Extubated yesterday (01/12). Her mom and sister are present, and they would like her to go to drug rehab and the patient agrees to go. 01/14: Unable to comply with swallowing 01/13/2021. Still pretty drowsy. She is asking if she can go home. She says she does not think she needs drug rehab but is thinking of looking into it. Chest radiograph appears improved. Awaiting repeat bedside swallow. Afebrile. More alert today. She spoke with psychiatric nurse liaison will look into outpatient treatment. Discharging home her in 7 days. Counseled on cessation from cocaine and methamphetamines. Consults: Pulm, Psychiatric assessment team Problem list: Acute toxic encephalopathy - related to cocaine and meth overdose. Aspiration pneumonitis Hypoglycemia Opiate overdose Respiratory failure with hypoxia - extubated 01/12 Allergic rhinitis Muscle spasms Anemia Osteoarthritis Mild acute kidney injury. Leukocytosis secondary to aspiration pneumonia and stress. Lactic acidosis, likely secondary to hypoxia resolved Greater than 30 minutes spent on d/c home Addiction services: [facility]: [address] [place] [id number] [place] [facility]: [address] [address] [facility] phone [phone] or [phone] fax [phone] [facility] 24/[address] [place] [address] [address] Discharge Information Condition at Discharge: Improved Follow Up: Weeks (1) Disposition/Orders: D/C to Home Scheduled Amoxicillin/Potassium Clav (Amox Tr-K Clv 875-125 Mg Tab) 1 Each Tablet, 1 TAB PO BID for Pneumonia for 7 Days, #14 Prescribed by: LUIS BALTAZAR MD on 01/15/21 1052 Cetirizine Hcl (Zyrtec) 10 Mg Tablet, 1 TAB PO DAILY, #30 Ref 2 Prescribed by: Elissa Cali APRN on 10/30/16 0739 Ferrous Sulfate (Ferrous Sulfate) 325 Mg Tablet, 1 TAB PO BID, #60 Ref 3 Prescribed by: SUNIL YAO on 09/28/17 1255 Scheduled PRN Hydroxyzine Pamoate (Hydroxyzine Pamoate) 50 Mg Capsule, 1 CAP PO TID PRN for IT DAYDAY, #90 Ref 1 Prescribed by: Elissa Cali APRN on 10/30/16 0739 Ibuprofen (Ibuprofen) 600 Mg Tablet, 600 MG PO PRN Q6HRS PRN for INFLAMMATION, #20 Prescribed by: SANTANA CRAIG on 03/10/16 1014 Discontinued Medications Cephalexin (Keflex) 500 Mg Capsule, 500 MG PO QID for 5 Days, #20 Prescribed by: CARMELITA VELAZQUEZ APRN on 12/31/18 1159 Hydrocodone/[place] 5-325 ([place] 5-325 Tablet) 1 Each Tablet, 1-2 TAB PO Q4-6HRS, #20 Prescribed by: Elissa Cali APRN on 03/19/16 1608 Methocarbamol (Robaxin) 500 Mg Tablet, 1 TAB PO TID, #30 Prescribed by: Elissa Cali APRN on 02/08/17 1356 Naproxen (Naprosyn) 500 Mg Tablet, 1 TAB PO BID for pain, #20 Prescribed by: NASREEN VILLA MD on 10/28/18 1101 Oxycodone Hcl/Acetaminophen (Oxycodone-Acetaminophen 5-325) 1 Each Tablet, 2 TAB PO PRN Q4HRS PRN for MODERATE PAIN, SEVERE PAIN, #30 Prescribed by: SUNIL YAO on 09/28/17 1255 Prednisone (Prednisone) 50 Mg Tablet, 1 TAB PO DAILY, #4 Prescribed by: Elissa Cali APRN on 10/30/16 0739 Tramadol Hcl (Ultram) 50 Mg Tablet, 50 MG PO Q6H PRN for PAIN, #20 Prescribed by: SANTANA CRAIG on 03/10/16 1014 Tramadol Hcl (Ultram) 50 Mg Tablet, 1 TAB PO Q6HRS, #30 Prescribed by: Elissa Cali APRN on 02/08/17 1356 Tramadol Hcl (Ultram) 50 Mg Tablet, 1 TAB PO Q6HRS, #20 Prescribed by: Elissa Cali APRN on 06/27/17 0748 Triamcinolone Acetonide (Triamcinolone Acetonide 0.1% Oint) 15 Gm Oint...g., 1 JOE TP BID for WOUND CARE, #1 Ref 1 Prescribed by: Elissa Cali APRN on 10/30/16 0739 Justicifation of Admission Dx: Justifications for Admission: Justification of Admission Dx: Yes Respiratory Failure: Severe Resp Distress LUIS BALTAZAR MD Jan 15, 2021 10:56
[2021-01-15 11:00] VITALS: BP 128/69
--- NOTE | 2021-01-15 12:00 | NUR ---
DISCHARGE INSTRUCTIONS GIVEN, QUESTIONS AND CONCERNS ANSWERED, PATIENT VERBALIZED UNDERSTANDING OF DISCHARGE INSTRUCTIONS INCLUDING TAKING ALL MEDICATIONS INSTRUCTED AND NOT USING ETOH OR DRUGS, PATIENTS' FAMILY MEMBERS AT THE BEDSIDE, ALL PERSONAL BELONGINGS GATHERED AND PLACED IN BAGS FOR DISCHARGE, SALINE LOCKS REMOVED.
--- NOTE | 2021-01-15 12:10 | NUR ---
PATIENT LEAVES THE UNIT PER W/C AND ACCOMPANIED BY THIS MILK [facility]NER, EMOTIONAL SUPPORT GIVEN, FOLLOW UP APPOINTMENTS ENCOURAGED. PATIENT ENCOURAGED TO REVIEW AND CHOOSE ONE OF THE REHAB FACILITIES AND GO TO ONE TO GET THE HELP SHE NEEDS.
== END 2021-01-15 12:11 | disposition home or self-care (01) | DRG 917 ==
LOC: ER 12:10 → 1 WEST ICU 14:18 → 5 SOUTH 01-13 17:29
PROVIDERS: ADMIT Internal Medicine; ATTEND Internal Medicine
PROC: 5A1945Z Respiratory Ventilation, 24-96 Consecutive Hours (ICD-10-PCS; principal; 2021-01-11)
PROC: 0BH17EZ Insertion of Endotracheal Airway into Trachea, Via Natural or Artificial Opening (ICD-10-PCS; 2021-01-11)
PROC: 5A09357 Assistance with Respiratory Ventilation, Less than 24 Consecutive Hours, Continuous Positive Airway Pressure (ICD-10-PCS; 2021-01-11)
PROC: 5A09357 Assistance with Respiratory Ventilation, Less than 24 Consecutive Hours, Continuous Positive Airway Pressure (ICD-10-PCS; 2021-01-12)
DX: T43.621A Poisoning by amphetamines, accidental (unintentional), initial encounter (principal); A41.9 Sepsis, unspecified organism; J15.6 Pneumonia due to other Gram-negative bacteria; G92 Toxic encephalopathy; J69.0 Pneumonitis due to inhalation of food and vomit; J96.01 Acute respiratory failure with hypoxia; N17.0 Acute kidney failure with tubular necrosis; E44.0 Moderate protein-calorie malnutrition; F11.20 Opioid dependence, uncomplicated; T40.601A Poisoning by unspecified narcotics, accidental (unintentional), initial encounter; D64.9 Anemia, unspecified; E16.2 Hypoglycemia, unspecified; F14.90 Cocaine use, unspecified, uncomplicated; F15.90 Other stimulant use, unspecified, uncomplicated; J45.909 Unspecified asthma, uncomplicated; M19.90 Unspecified osteoarthritis, unspecified site; Z20.822 Contact with and (suspected) exposure to COVID-19; Z87.891 Personal history of nicotine dependence; Z88.8 Allergy status to other drugs, medicaments and biological substances; Z68.27 Body mass index [BMI] 27.0-27.9, adult; Y92.89 Other specified places as the place of occurrence of the external cause
CPT/HCPCS: 36415; 36600; 70450; 71045; 80048; 80053; 80307; 81025; 82140; 82805; 82962; 83605; 83735; 84100; 85007; 85025; 93005; 94002; 94003; 94760; 96365; 96366; 96368; 96375; 96376; 99292; C9113; J0171; J1650; J2310; J2543; J2704; J3480; J3490; J7050; J7060; U0003; U0005; 92526-GN; 92610-GN; 99291-25; G0378; J7030